=== PATIENT | male | born 1945 | race Caucasian/White ===

== ENCOUNTER → 2016-09-06 | Outpatient (CLI) | payer MEDICARE ==
[~2016-09-06] MED LIST: BUDE10.2 IH; CHOL100013 PO; LEVO25TA4 PO; TRIA1CAP3 PO
--- NOTE | 2016-09-06 16:06 | RAD ---
Indication follow-up pulmonary nodule. Noncontrast imaging through the chest was performed and is compared to an exam 05/20/2016. The imaging of the chest, particularly just above the neftaly and caudally is significantly limited by patient respiratory motion. Imaging through the upper abdomen demonstrates a probable parapelvic cyst associated with the left kidney. A right renal cyst is noted, similar. A definite acute or significant finding in the upper abdomen is not seen. Significant hilar or mediastinal adenopathy is not seen. There is some coronary artery calcification. A definite new parenchymal mass is not seen. Irregular pleural-based parenchymal opacity in the left upper lobe is seen and appears unchanged. A definite new finding or acute finding in the chest is not seen but again the study is compromised by patient respiratory motion. Occasional calcified granulomas are noted. IMPRESSION: Limited study secondary to patient respiratory motion. No definite acute finding seen. Irregular parenchymal opacity in the left upper lobe appears stable. Continued surveillance imaging advised. PQRS Compliance Statement: One or more of the following individualized dose reduction techniques were utilized for this examination: 1. Automated exposure control 2. Adjustment of the mA and/or kV according to patient size 3. Use of iterative reconstruction technique
== END | disposition home or self-care (01) ==
LOC: CT 15:05
PROVIDERS: ATTEND Internal Medicine
DX: R91.1 Solitary pulmonary nodule (principal)
CPT/HCPCS: 71250

== ENCOUNTER → 2017-02-07 | Outpatient (CLI) | payer BC, MEDICARE ==
--- NOTE | 2017-02-07 15:52 | RAD ---
CT of the chest without contrast, 02/07/2017: History: Follow-up pulmonary nodule Noncontrast scans were obtained with multiplanar reconstructions produced. Comparison is made to a study from 09/06/2016. There are a few scattered linear opacities in both lungs compatible with scars. A calcified granuloma is present in the left upper lobe. There is an elongated pleural-parenchymal opacity in the posterolateral aspect of the left upper lobe as best seen on images 74 through 78 of series #3. It have shown no definite change since 05/20/2016 and 09/06/2016. No new pulmonary nodularity or significant infiltrate is seen. There is no evidence of pleural fluid. There is moderate calcific plaquing of the thoracic aorta without evidence of aneurysm. Several coronary artery calcifications are noted. The heart is not enlarged. No mediastinal adenopathy is evident. Moderate multilevel hypertrophic degenerative change is present in the thoracic spine. IMPRESSION: 1. Scattered bilateral parenchymal scars. 2. Unchanged small elongated pleural-parenchymal opacity in the lateral aspect of the left upper lobe which is also probably a scar. Further CT surveillance may be prudent to exclude a slowly growing neoplasm. 3. Mild coronary artery calcifications. 4. No new abnormality is detected. PQRS Compliance Statement: One or more of the following individualized dose reduction techniques were utilized for this examination: 1. Automated exposure control 2. Adjustment of the mA and/or kV according to patient size 3. Use of iterative reconstruction technique
== END | disposition home or self-care (01) ==
LOC: CT 15:27
PROVIDERS: ATTEND Internal Medicine
DX: J84.10 Pulmonary fibrosis, unspecified (principal); R91.1 Solitary pulmonary nodule; I25.10 Atherosclerotic heart disease of native coronary artery without angina pectoris; J98.4 Other disorders of lung; M47.894 Other spondylosis, thoracic region; I70.0 Atherosclerosis of aorta
CPT/HCPCS: 71250

== ENCOUNTER 2017-04-17 15:00 | Emergency (ER) | payer BC ==
[~2017-04-17] VITALS: Ht 188 cm; Wt 113.4 kg
[2017-04-17 15:28] LABS: BASO # 0.1 x10^3/uL (0.0-0.2); BASO % 1 % (0-3); EOS % 2 % (0-3); HEMATOCRIT 39.3 % (39.0-53.0); HEMOGLOBIN 13.6 g/dL (13.0-17.5); LYMPH # 1.3 x10^3/uL (1.0-4.8); LYMPH % 16 % (24-48); MEAN CORPUSCULAR HEMOGLOBIN 32 pg (25-35); MEAN CORPUSCULAR HGB CONC 35 g/dL (31-37); MEAN CORPUSCULAR VOLUME 93 fL (79-100); MONO % 8 % (0-9); NEUT % 74 % (31-73); PLATELET COUNT 242 x10^3/uL (140-400); RED BLOOD COUNT 4.24 x10^6/uL (4.30-5.70); RED CELL DISTRIBUTION WIDTH 13.6 % (11.5-14.5); WHITE BLOOD COUNT 8.2 x10^3/uL (4.0-11.0)
--- NOTE | 2017-04-17 15:30 | PHYS DOC ---
Past Medical History Past Medical History: CHF, High Cholesterol, Hypertension, Hypothyroid Past Surgical History: Other Additional Past Surgical Histo: LAMECTOMY, PYLODAL CYST, BILATERAL ARM SX Alcohol Use: Occasionally Drug Use: None Adult General Chief Complaint Chief Complaint: LOWER EXT PAIN [facility] HPI Patient is a 71 year old male presents with complaints of left lower extremity pain and swelling. At baseline, the patient has bilateral lower extremity swelling but he thinks the swelling and the discomfort is worse today. Patient denies any trauma. Patient is noncompliant with medication regimen including diuretics and antihypertensives. Patient denies any fevers chills cough chest pain back pain neck pain abdominal pain. However the patient is experiencing some shortness of breath. Review of Systems Review of Systems Constitutional: Denies fever or chills [] Eyes: Denies change in visual acuity, redness, or eye pain [] HENT: Denies nasal congestion or sore throat [] Respiratory: Denies cough. Yes to mild shortness of breath Cardiovascular: No additional information not addressed in HPI. Yes to bilateral lower extremity swelling GI: Denies abdominal pain, nausea, vomiting, . Musculoskeletal: Denies back pain or joint pain. Yesterday left lower extremity pain Integument: Denies rash or skin lesions [] Neurologic: Denies headache, focal weakness or sensory changes [] Current Medications Current Medications Current Medications Medications (Trade) Dose Ordered Sig/Kendra Start Time Stop Time Status Last Admin Dose Admin Labetalol HCl (Normodyne) 10 mg 1X ONCE 04/17/17 16:00 04/17/17 16:01 DC 04/17/17 15:58 10 MG Allergies Allergies Allergies Coded Allergies Type Severity Reaction Last Updated Verified No Known Drug Allergies 05/20/16 No Physical Exam Physical Exam Constitutional: Well developed, well nourished, no acute distress, non-toxic appearance. [] HENT: Normocephalic, atraumatic. No JVD Eyes: EOMI, conjunctiva normal, no discharge. [] Neck: Normal range of motion, no tenderness, supple, no JVD Cardiovascular:Heart rate regular rhythm, no murmur, normal perfusion Lungs & Thorax: Bilateral breath sounds clear to auscultation, no tachypnea Abdomen: Bowel sounds normal, soft, no tenderness, no masses, no pulsatile masses. [] Skin: Warm, dry, no erythema, no rash. [] Back: No tenderness, normal range of motion Extremities:no cyanosis, no clubbing, ROM intact. Bilateral lower extremity edema with left more than right, pitting edema 2+. No signs of arterial insufficiency Neurologic: Alert and oriented X 3, normal motor function, no focal deficits noted. [] Psychologic: Affect normal, judgement normal, mood normal. [] Current Patient Data Vital Signs Vital Signs Date Time Temp Pulse Resp B/P (MAP) Pulse Ox O2 Delivery O2 Flow Rate FiO2 04/17/17 17:55 69 18 142/71 (94) 97 Room Air Lab Values Laboratory Tests Test 04/17/17 15:15 White Blood Count 8.2 x10^3/uL (4.0-11.0) Red Blood Count 4.24 x10^6/uL (4.30-5.70) L Hemoglobin 13.6 g/dL (13.0-17.5) Hematocrit 39.3 % (39.0-53.0) Mean Corpuscular Volume 93 fL (79-100) Mean Corpuscular Hemoglobin 32 pg (25-35) Mean Corpuscular Hemoglobin Concent 35 g/dL (31-37) Red Cell Distribution Width 13.6 % (11.5-14.5) Platelet Count 242 x10^3/uL (140-400) Neutrophils (%) (Auto) 74 % (31-73) H Lymphocytes (%) (Auto) 16 % (24-48) L Monocytes (%) (Auto) 8 % (0-9) Eosinophils (%) (Auto) 2 % (0-3) Basophils (%) (Auto) 1 % (0-3) Neutrophils # (Auto) 6.0 x10^3uL (1.8-7.7) Lymphocytes # (Auto) 1.3 x10^3/uL (1.0-4.8) Monocytes # (Auto) 0.6 x10^3/uL (0.0-1.1) Eosinophils # (Auto) 0.2 x10^3/uL (0.0-0.7) Basophils # (Auto) 0.1 x10^3/uL (0.0-0.2) Sodium Level 139 mmol/L (136-145) Potassium Level 3.9 mmol/L (3.5-5.1) Chloride Level 101 mmol/L (98-107) Carbon Dioxide Level 27 mmol/L (21-32) Anion Gap 11 (6-14) Blood Urea Nitrogen 20 mg/dL (8-26) Creatinine 1.3 mg/dL (0.7-1.3) Estimated GFR (Cockcroft-Gault) 54.4 Glucose Level 142 mg/dL (70-99) H Calcium Level 9.0 mg/dL (8.5-10.1) Total Bilirubin 0.4 mg/dL (0.2-1.0) Direct Bilirubin 0.1 mg/dL (0.0-0.2) Aspartate Amino Transferase (AST) 16 U/L (15-37) Alanine Aminotransferase (ALT) 17 U/L (16-63) Alkaline Phosphatase 68 U/L (46-116) Troponin I Quantitative < 0.017 ng/mL (0.000-0.055) XR-Ilk-I-Type Natriuretic Peptide 117 pg/mL (0-124) Total Protein 7.3 g/dL (6.4-8.2) Albumin 3.6 g/dL (3.4-5.0) Laboratory Tests 04/17/17 15:15 Laboratory Tests 04/17/17 15:15 EKG EKG 1515 96, sinus rhythm, no STEMI [] Radiology/Procedures Radiology/Procedures preliminary read: copd pattern, nothing acute[] Course & Med Decision Making Course & Med Decision Making Pertinent Labs and Imaging studies reviewed. (See chart for details) results discussed with patient. 1841 pt in nad. HR 70, 97% RA, no tachypnea, 144/73. Pt agrees to follow up with pcp for recheck and discussion regarding compliance with BP meds as well as further evaluation for peripheral edema. The chronicity of the edema is a problem that, at the time of of the ED evaluation, does not require inpatient evaluation and is amenable to outpatient work up and continued treatment. Importance of compliance with medication regimen and diet have been emphasized to pt and family. pt agrees with plan, no reservations at being discharged home. [] Dragon Disclaimer Dragon Disclaimer This electronic medical record was generated, in whole or in part, using a voice recognition dictation system. Departure Departure Impression: Primary Impression: Hypertension affecting Additional Impressions: Non compliance w medication regimen Peripheral edema Condition: IMPROVED Referrals: NATALIA OZUNA MD (PCP) follow up with your pcp in 2-4 days, please be compliant with your medications and diet. If your symptoms worsen or other concerning symptoms develop please return to the ED immediately Patient Instructions: Hypertension, Peripheral Edema Problem Qualifiers Robert NETTLES MD Apr 17, 2017 15:30
[2017-04-17 15:46] LABS: CREATININE 1.3 mg/dL (0.7-1.3); GFR 54.4; POTASSIUM 3.9 mmol/L (3.5-5.1)
[2017-04-17 15:51] LABS: ALBUMIN 3.6 g/dL (3.4-5.0); DIRECT BILIRUBIN 0.1 mg/dL (0.0-0.2); TOTAL BILIRUBIN 0.4 mg/dL (0.2-1.0); TOTAL PROTEIN 7.3 g/dL (6.4-8.2)
[2017-04-17] MEDS ORDERED: LABETALOL 20 MG/4 ML DISP.SYRIN. IVP ONE (16:00)
--- NOTE | 2017-04-17 16:08 | EKG ---
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
--- NOTE | 2017-04-17 16:37 | RAD ---
Bilateral lower extremity venous duplex study 04/17/2017 Clinical history: Bilateral leg swelling. Technique: Using a combination of real time ultrasound imaging and color-flow and pulse Doppler imaging techniques along with graded compression and augmentation, duplex evaluation of the deep venous system of the both lower extremities was performed. Multiple images were obtained. Findings: There is no sonographic evidence of deep venous thrombosis involving the visualized deep venous structures of either lower extremity. A 2.3 cm popliteal cyst is seen posterior to the left knee. Impression: There is no sonographic evidence of deep venous thrombosis involving the visualized deep venous structures of either lower extremity.
[2017-04-17 17:55] VITALS: BP 142/71
--- NOTE | 2017-04-18 10:29 | RAD ---
Exam performed: 2 views of the chest. Indication: chf, bilateral lower extremity swelling, shortness of breath for 3 months Date of Service:04/17/2017 5:15 PM . Comparison : Two-view chest from 05/02/16. Findings: PA and lateral radiographs of the chest reveal a normal cardiomediastinal contour. Pulmonary vascularity is unremarkable. The lungs are clear. No pleural fluid is seen. The visualized osseous structures are unremarkable. Impression: Radiographically normal chest.
== END 2017-04-17 18:56 | disposition home or self-care (01) ==
LOC: ER 15:00
DX: I11.0 Hypertensive heart disease with heart failure (principal); I50.9 Heart failure, unspecified; R60.9 Edema, unspecified; Z91.14 Patient's other noncompliance with medication regimen; E03.9 Hypothyroidism, unspecified
CPT/HCPCS: 36415; 71020; 80048; 80076; 83880; 84484; 85025; 93005; 93970; 96374; 99285; J3490

== ENCOUNTER 2017-05-16 11:13 | Inpatient (IN) | payer BC ==
[~2017-05-16] VITALS: Ht 188 cm; Wt 114.5 kg
[2017-05-16 12:08] LABS: BASO % 1 % (0-3); EOS % 3 % (0-3); HEMATOCRIT 39.1 % (39.0-53.0); HEMOGLOBIN 13.1 g/dL (13.0-17.5); LYMPH # 1.6 x10^3/uL (1.0-4.8); LYMPH % 23 % (24-48); MEAN CORPUSCULAR HEMOGLOBIN 31 pg (25-35); MEAN CORPUSCULAR HGB CONC 34 g/dL (31-37); MEAN CORPUSCULAR VOLUME 93 fL (79-100); MONO % 5 % (0-9); NEUT % 68 % (31-73); PLATELET COUNT 172 x10^3/uL (140-400); RED BLOOD COUNT 4.21 x10^6/uL (4.30-5.70); RED CELL DISTRIBUTION WIDTH 14.1 % (11.5-14.5); WHITE BLOOD COUNT 7.1 x10^3/uL (4.0-11.0)
--- NOTE | 2017-05-16 12:12 | RAD ---
EXAM: Chest one view. HISTORY: Chest pain, dizziness, shortness of breath. COMPARISON: 04/17/2017. FINDINGS: A frontal view of the chest is obtained. There are no confluent infiltrates. Hyperinflation is consistent with chronic obstructive pulmonary disease. There is no pneumothorax or pleural effusion. The heart is not enlarged. There are atherosclerotic calcifications of the aorta. IMPRESSION: 1. Hyperinflation suggests chronic obstructive pulmonary disease. No confluent infiltrates.
[2017-05-16 12:21] LABS: CREATININE 3.4 mg/dL (0.7-1.3); GFR 17.9; POTASSIUM 5.3 mmol/L (3.5-5.1)
--- NOTE | 2017-05-16 12:40 | PHYS DOC ---
Past Medical History Past Medical History: CHF, High Cholesterol, Hypertension, Hypothyroid Past Surgical History: Other Additional Past Surgical Histo: LAMINECTOMY, PILONIDAL CYST, BILATERAL ARM SX, BILATERAL WRIST SX Alcohol Use: Occasionally Drug Use: None Adult General Chief Complaint Chief Complaint: CHEST PAIN HPI HPI Patient is a 71 year old male who was being having shortness of air dizziness chest tightness that is been going on for a month and has progressively getting worse. Patient has no contact to his PCP regarding his symptoms. Patient does not describe any new pain or swelling in his lower extremities. Patient denies any sick contacts, fevers, chills, rashes. Patient states he is compliant with his diabetic medications. Patient denies any neck extremity abdominal pain Review of Systems Review of Systems Constitutional: Denies fever or chills [] Eyes: Denies change in visual acuity, redness, or eye pain [] HENT: Denies nasal congestion or sore throat [] Respiratory: Denies cough or shortness of breath [] Cardiovascular: No additional information not addressed in HPI [] GI: Denies abdominal pain, nausea, vomiting, bloody stools or diarrhea [] : Denies dysuria or hematuria [] Musculoskeletal: Denies back pain or joint pain [] Integument: Denies rash or skin lesions [] Neurologic: Denies headache, focal weakness or sensory changes [] Endocrine: Denies polyuria or polydipsia [] Current Medications Current Medications Current Medications Medications (Trade) Dose Ordered Sig/Kendra Start Time Stop Time Status Last Admin Dose Admin Sodium Chloride 250 ml @ 500 mls/hr 1X ONCE 05/16/17 12:45 05/16/17 13:14 Allergies Allergies Allergies Coded Allergies Type Severity Reaction Last Updated Verified No Known Drug Allergies 05/20/16 No Physical Exam Physical Exam Constitutional: Well developed, well nourished, mild distress, non-toxic appearance. [] HENT: Normocephalic, atraumatic, , oropharynx dry, no oral exudates, nose normal. [] Eyes: EOMI, conjunctiva normal, no discharge. [] Neck: Normal range of motion, no tenderness, supple, no stridor. JVD Cardiovascular bradycardia, equal pulses, normal perfusion Lungs & Thorax: Decreased breathe sounds in the bases, no rales, no rhonchi, no wheezing Abdomen: Bowel sounds normal, soft, no tenderness, no masses, no pulsatile masses. [] Skin: Warm, dry, no erythema, no rash. [] Back: No tenderness, normal range of motion Extremities: No tenderness, no cyanosis, no DVT, ROM intact, no edema. [] Neurologic: Alert and oriented X 3, normal motor function, no focal deficits noted. [] Psychologic: Affect normal, judgement normal, mood normal. [] Current Patient Data Vital Signs Vital Signs Date Time Temp Pulse Resp B/P (MAP) Pulse Ox O2 Delivery O2 Flow Rate FiO2 05/16/17 11:22 97.4 58 18 109/55 (73) 100 Room Air 97.4 Lab Values Laboratory Tests Test 05/16/17 11:50 White Blood Count 7.1 x10^3/uL (4.0-11.0) Red Blood Count 4.21 x10^6/uL (4.30-5.70) L Hemoglobin 13.1 g/dL (13.0-17.5) Hematocrit 39.1 % (39.0-53.0) Mean Corpuscular Volume 93 fL (79-100) Mean Corpuscular Hemoglobin 31 pg (25-35) Mean Corpuscular Hemoglobin Concent 34 g/dL (31-37) Red Cell Distribution Width 14.1 % (11.5-14.5) Platelet Count 172 x10^3/uL (140-400) Neutrophils (%) (Auto) 68 % (31-73) Lymphocytes (%) (Auto) 23 % (24-48) L Monocytes (%) (Auto) 5 % (0-9) Eosinophils (%) (Auto) 3 % (0-3) Basophils (%) (Auto) 1 % (0-3) Neutrophils # (Auto) 4.8 x10^3uL (1.8-7.7) Lymphocytes # (Auto) 1.6 x10^3/uL (1.0-4.8) Monocytes # (Auto) 0.4 x10^3/uL (0.0-1.1) Eosinophils # (Auto) 0.2 x10^3/uL (0.0-0.7) Basophils # (Auto) 0.0 x10^3/uL (0.0-0.2) Sodium Level 138 mmol/L (136-145) Potassium Level 5.3 mmol/L (3.5-5.1) H Chloride Level 106 mmol/L (98-107) Carbon Dioxide Level 23 mmol/L (21-32) Anion Gap 9 (6-14) Blood Urea Nitrogen 70 mg/dL (8-26) H Creatinine 3.4 mg/dL (0.7-1.3) H Estimated GFR (Cockcroft-Gault) 17.9 Glucose Level 122 mg/dL (70-99) H Calcium Level 9.0 mg/dL (8.5-10.1) Troponin I Quantitative < 0.017 ng/mL (0.000-0.055) NR-Upu-B-Type Natriuretic Peptide 69 pg/mL (0-124) Laboratory Tests 05/16/17 11:50 Laboratory Tests 05/16/17 11:50 EKG EKG 1130 51, no STEMI, bradycardia[] Radiology/Procedures Radiology/Procedures EXAM: Chest one view. HISTORY: Chest pain, dizziness, shortness of breath. COMPARISON: 04/17/2017. FINDINGS: A frontal view of the chest is obtained. There are no confluent infiltrates. Hyperinflation is consistent with chronic obstructive pulmonary disease. There is no pneumothorax or pleural effusion. The heart is not enlarged. There are atherosclerotic calcifications of the aorta. IMPRESSION: 1. Hyperinflation suggests chronic obstructive pulmonary disease. No confluent infiltrates.[] Course & Med Decision Making Course & Med Decision Making Pertinent Labs and Imaging studies reviewed. (See chart for details) [] Dragon Disclaimer Dragon Disclaimer This electronic medical record was generated, in whole or in part, using a voice recognition dictation system. Departure Departure Impression: Primary Impression: Chest pain Additional Impressions: Dyspnea Acute renal failure Hyperkalemia Dehydration Disposition: ADMITTED INPATIENT Admitting Physician: Natalia Ozuna Condition: STABLE Referrals: NATALIA OZUNA MD (PCP) Problem Qualifiers Robert NETTLES MD May 16, 2017 12:40
[2017-05-16] MEDS ORDERED: IV NORMAL SALINE 250ML 250 ML IV ONE (12:45)
--- NOTE | 2017-05-16 12:53 | EKG ---
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
[2017-05-16] MEDS ORDERED: ONDANSETRON PF 4 MG/2 ML VIAL. IV PRN (13:00)
[2017-05-16 15:00] VITALS: BP 115/67
[2017-05-16] MEDS ORDERED: LISI40TA PO (15:12)
[2017-05-16] MEDS ORDERED: TRIA1TAB3 PO (15:45)
[2017-05-16] MEDS ORDERED: PNEUMOC CONJ VACC 23-VALENT 0.5 ML VIAL. VAX IM ONE (17:00)
[2017-05-16] MEDS ORDERED: FLU VACC QS2017-18 (36MOS+)/PF 0.5 ML SYRINGE. VAX IM ONE (17:00)
--- NOTE | 2017-05-16 17:29 | PDOC1 ---
History and Physical Date of Admission Date of Admission 05/16/17 Identification/Chief Complaint Chief Complaint chest pain, swelling LE Problems: Source Source: Chart review, Patient History of Present Illness History of Present Illness Patient is a 71 year old male who was being having shortness of air dizziness chest tightness that is been going on for a month and has progressively getting worse.last seen PCP was 11/01 . Patient does not describe any new pain in the calf of lower extremities. Patient denies any sick contacts, fevers, chills, rashes. Patient states he is compliant with his medications. Patient denies any neck or abdominal pain Past Medical History Cardiovascular: CHF, HTN, Hyperlipidemia Pulmonary: COPD, Other (lung nodule left has been stable) CENTRAL NERVOUS SYSTEM: Other (headache) Heme/Onc: No pertinent hx Hepatobiliary: No pertinent hx Psych: No pertinent hx Rheumatologic: Other (osteo arthritis) Renal/: No pertinent hx Endocrine: Hypothyroidism Dermatology: No pertinent hx Family History Family History: Hypertension Social History Smoke: 1 pack per day ALCOHOL: rare Drugs: None Current Problem List Problem List Problems Medical Problems: (1) Acute renal failure Status: Acute (2) Chest pain Status: Acute (3) Dehydration Status: Acute (4) Dyspnea Status: Acute (5) Hyperkalemia Status: Acute Current Medications Current Medications Current Medications Medications (Trade) Dose Ordered Sig/Kendra Start Time Stop Time Status Last Admin Dose Admin Influenza Virus Vaccine Quadrival (Fluarix Quad 0620-8090 Syringe) 0.5 ml ONCE ONCE 05/16/17 17:00 05/16/17 17:01 DC 05/16/17 16:11 0.5 ML Levothyroxine Sodium (Synthroid) 25 mcg DAILYAC 05/17/17 07:30 Ondansetron HCl (Zofran) 4 mg PRN Q8HRS PRN 05/16/17 13:00 05/17/17 12:59 05/16/17 13:13 4 MG Pneumococcal Polyvalent Vaccine (Pneumovax 23) 0.5 ml ONCE ONCE 05/16/17 17:00 05/16/17 17:01 DC 05/16/17 16:13 0.5 ML Sodium Chloride 250 ml @ 500 mls/hr 1X ONCE 05/16/17 12:45 05/16/17 13:14 DC 05/16/17 12:45 500 MLS/HR Allergies Allergies Allergies Coded Allergies Type Severity Reaction Last Updated Verified No Known Drug Allergies 05/20/16 No ROS Review of System CONSTITUTIONAL: No fever or chills EYES: No recent changes SKIN: No rash or itching CARDIOVASCULAR: mild chest pain tightness, no syncope but dizziness,no palpitations, + edema RESPIRATORY: No SOB or cough GASTROINTESTINAL: No nausea, vomiting or abdominal pain NEUROLOGICAL: + headaches and general weakness ENDOCRINE: No cold or heat intolerance GENITOURINARY: No urgency or frequency of urination MUSCULOSKELETAL: No back pain + joint pain LYMPHATICS: No enlarged lymph nodes PSYCHIATRIC: No anxiety or depression Physical Exam Physical Exam GEN.: No apparent distress. Alert and oriented. HEENT: Head is normocephalic, atraumatic NECK: Supple. LUNGS: Clear to auscultation. HEART: RRR, S1, S2 present. Peripheral pulses intact ABDOMEN: Soft, nontender. Positive bowel sounds. EXTREMITIES: Without any cyanosis. NEUROLOGIC: Normal speech, normal tone PSYCHIATRIC: Normal affect, normal mood. SKIN: No ulcerations Vitals Vitals Vital Signs Date Time Temp Pulse Resp B/P (MAP) Pulse Ox O2 Delivery O2 Flow Rate FiO2 05/16/17 14:46 Room Air 05/16/17 12:53 60 111/59 (76) 99 05/16/17 11:22 97.4 18 97.4 Labs Labs Laboratory Tests Test 05/16/17 11:50 White Blood Count 7.1 x10^3/uL (4.0-11.0) Red Blood Count 4.21 x10^6/uL (4.30-5.70) Hemoglobin 13.1 g/dL (13.0-17.5) Hematocrit 39.1 % (39.0-53.0) Mean Corpuscular Volume 93 fL (79-100) Mean Corpuscular Hemoglobin 31 pg (25-35) Mean Corpuscular Hemoglobin Concent 34 g/dL (31-37) Red Cell Distribution Width 14.1 % (11.5-14.5) Platelet Count 172 x10^3/uL (140-400) Neutrophils (%) (Auto) 68 % (31-73) Lymphocytes (%) (Auto) 23 % (24-48) Monocytes (%) (Auto) 5 % (0-9) Eosinophils (%) (Auto) 3 % (0-3) Basophils (%) (Auto) 1 % (0-3) Neutrophils # (Auto) 4.8 x10^3uL (1.8-7.7) Lymphocytes # (Auto) 1.6 x10^3/uL (1.0-4.8) Monocytes # (Auto) 0.4 x10^3/uL (0.0-1.1) Eosinophils # (Auto) 0.2 x10^3/uL (0.0-0.7) Basophils # (Auto) 0.0 x10^3/uL (0.0-0.2) Sodium Level 138 mmol/L (136-145) Potassium Level 5.3 mmol/L (3.5-5.1) Chloride Level 106 mmol/L (98-107) Carbon Dioxide Level 23 mmol/L (21-32) Anion Gap 9 (6-14) Blood Urea Nitrogen 70 mg/dL (8-26) Creatinine 3.4 mg/dL (0.7-1.3) Estimated GFR (Cockcroft-Gault) 17.9 Glucose Level 122 mg/dL (70-99) Calcium Level 9.0 mg/dL (8.5-10.1) Troponin I Quantitative < 0.017 ng/mL (0.000-0.055) AZ-Dim-M-Type Natriuretic Peptide 71 pg/mL (0-124) Laboratory Tests Test 05/16/17 11:50 White Blood Count 7.1 x10^3/uL (4.0-11.0) Red Blood Count 4.21 x10^6/uL (4.30-5.70) Hemoglobin 13.1 g/dL (13.0-17.5) Hematocrit 39.1 % (39.0-53.0) Mean Corpuscular Volume 93 fL (79-100) Mean Corpuscular Hemoglobin 31 pg (25-35) Mean Corpuscular Hemoglobin Concent 34 g/dL (31-37) Red Cell Distribution Width 14.1 % (11.5-14.5) Platelet Count 172 x10^3/uL (140-400) Neutrophils (%) (Auto) 68 % (31-73) Lymphocytes (%) (Auto) 23 % (24-48) Monocytes (%) (Auto) 5 % (0-9) Eosinophils (%) (Auto) 3 % (0-3) Basophils (%) (Auto) 1 % (0-3) Neutrophils # (Auto) 4.8 x10^3uL (1.8-7.7) Lymphocytes # (Auto) 1.6 x10^3/uL (1.0-4.8) Monocytes # (Auto) 0.4 x10^3/uL (0.0-1.1) Eosinophils # (Auto) 0.2 x10^3/uL (0.0-0.7) Basophils # (Auto) 0.0 x10^3/uL (0.0-0.2) Sodium Level 138 mmol/L (136-145) Potassium Level 5.3 mmol/L (3.5-5.1) Chloride Level 106 mmol/L (98-107) Carbon Dioxide Level 23 mmol/L (21-32) Anion Gap 9 (6-14) Blood Urea Nitrogen 70 mg/dL (8-26) Creatinine 3.4 mg/dL (0.7-1.3) Estimated GFR (Cockcroft-Gault) 17.9 Glucose Level 122 mg/dL (70-99) Calcium Level 9.0 mg/dL (8.5-10.1) Troponin I Quantitative < 0.017 ng/mL (0.000-0.055) IU-Gvb-R-Type Natriuretic Peptide 71 pg/mL (0-124) VTE Prophylaxis Ordered VTE Prophylaxis Devices: Yes VTE Pharmacological Prophylaxi: Yes Assessment/Plan Assessment/Plan 1- acute renal failure will hold MCKINLEY and diuretic and hydrate 2-dizziness likely due to dhydration 3-chest discomfort atypical serial enzyme 4-swelling LE 5-hx left lung nodule has barbara stable over [address] in 08/03 6-hypothyroid check lipid NATALIA OZUNA MD May 16, 2017 17:29
[2017-05-16] MEDS ORDERED: ENOXAPARIN 30 MG/0.3 ML SYRINGE. SQ SCH (17:30)
[2017-05-16 18:27] VITALS: BP 112/53
[2017-05-16 19:00] VITALS: BP 83/47
[2017-05-16] MEDS ORDERED: IV NORMAL SALINE 500ML BAG 500 ML IV ONE (20:00)
[2017-05-16] MEDS: IV 1/2 NORMAL SALINE 1,000 ML IV SCH (20:24)
[2017-05-16 20:25] VITALS: BP 99/51
[2017-05-16] MEDS: IPRATRPIUM/ALBUTEROL 0.5/2.5MG 3 ML NEBU. NEB SCH (20:31)
[2017-05-16 20:44] VITALS: BP 96/58
[2017-05-16 23:00] VITALS: BP 99/58
[2017-05-17 03:00] VITALS: BP 113/59
[2017-05-17 03:37] LABS: BASO # 0.1 x10^3/uL (0.0-0.2); BASO % 1 % (0-3); EOS % 5 % (0-3); HEMATOCRIT 39.5 % (39.0-53.0); HEMOGLOBIN 12.8 g/dL (13.0-17.5); LYMPH # 1.8 x10^3/uL (1.0-4.8); LYMPH % 31 % (24-48); MEAN CORPUSCULAR HEMOGLOBIN 31 pg (25-35); MEAN CORPUSCULAR HGB CONC 32 g/dL (31-37); MEAN CORPUSCULAR VOLUME 95 fL (79-100); MONO % 9 % (0-9); NEUT % 54 % (31-73); PLATELET COUNT 156 x10^3/uL (140-400); RED BLOOD COUNT 4.13 x10^6/uL (4.30-5.70); RED CELL DISTRIBUTION WIDTH 14.7 % (11.5-14.5); WHITE BLOOD COUNT 5.9 x10^3/uL (4.0-11.0)
[2017-05-17 05:27] LABS: CALCIUM 8.8 mg/dL (8.5-10.1); CREATININE 2.5 mg/dL (0.7-1.3); GFR 25.6; POTASSIUM 4.7 mmol/L (3.5-5.1)
[2017-05-17] MEDS: IV 1/2 NORMAL SALINE 1,000 ML IV SCH ×2 (05:53→16:17)
[2017-05-17 07:00] VITALS: BP 89/57
[2017-05-17] MEDS: IPRATRPIUM/ALBUTEROL 0.5/2.5MG 3 ML NEBU. NEB SCH ×4 (07:12→20:02)
[2017-05-17] MEDS ORDERED: LEVOTHYROXINE 25 MCG TABLET. PO SCH (07:30)
[2017-05-17 07:58] LABS: CHOLESTEROL/HDL RATIO 5.7
--- NOTE | 2017-05-17 10:05 | PDOC2 ---
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 He reports midsternal chest pressure that occasionally radiates to the left axillary region and across the back of his neck and shoulders. He reports onset of pain with walking about 100 feet and resolution after a few minutes of rest. Episodes of pain started intermittently about 2 months ago and have been occurring more and more frequently. He reports associated dyspnea, lightheadedness and nausea. He also reports epigastric pain and chronic diarrhea (7 stools per day) for quite some time. He reports lightheadedness on standing that improves with sitting down. He reports feeling his heart pounding when at rest but denies skipping or racing episodes. He denies congestive symptoms and sleeps with 1-2 pillows for comfort. PAST MEDICAL HISTORY Past Medical History Cardiovascular: CHF, HTN, Hyperlipidemia Pulmonary: COPD, Other (lung nodule left has been stable) CENTRAL NERVOUS SYSTEM: Other (headache) Heme/Onc: No pertinent hx Hepatobiliary/GI: chronic diarrhea Psych: No pertinent hx Rheumatologic: Other (osteo arthritis) Renal/: No pertinent hx Endocrine: Hypothyroidism Dermatology: No pertinent hx PAST SURGICAL HISTORY Past Surgical History abdominal surgery as a child, back surgery, pilonidal cyst FAMILY HISTORY Family History premature coronary disease in father SOCIAL HISTORY Social History prior smoker, quit 20 years ago, 2 beers occasionally, no illicit drugs CURRENT MEDICATIONS CURRENT MEDICATIONS Current Medications Medications (Trade) Dose Ordered Sig/Kendra Route PRN Reason Start Time Stop Time Status Last Admin Dose Admin Sodium Chloride 250 ml @ 500 mls/hr 1X ONCE IV 05/16/17 12:45 05/16/17 13:14 DC 05/16/17 12:45 Ondansetron HCl (Zofran) 4 mg PRN Q8HRS PRN IV NAUSEA/VOMITING 05/16/17 13:00 05/17/17 12:59 05/16/17 13:13 Influenza Virus Vaccine Quadrival (Fluarix Quad [id number] Syringe) 0.5 ml ONCE ONCE VAX IM 05/16/17 17:00 05/16/17 17:01 DC 05/16/17 16:11 Pneumococcal Polyvalent Vaccine (Pneumovax 23) 0.5 ml ONCE ONCE VAX IM 05/16/17 17:00 05/16/17 17:01 DC 05/16/17 16:13 Albuterol/ Ipratropium (Duoneb) 3 ml RTQID NEB 05/16/17 20:00 05/17/17 07:12 Enoxaparin Sodium (Lovenox 30mg Syringe) 30 mg Q24H SQ 05/16/17 17:30 05/16/17 17:41 Sodium Chloride 500 ml @ 500 mls/hr 1X ONCE IV 05/16/17 20:00 05/16/17 20:59 DC 05/16/17 20:19 Sodium Chloride 1,000 ml @ 100 mls/hr Q10H IV 05/16/17 20:00 05/17/17 05:53 ALLERGIES ALLERGIES: Coded Allergies: No Known Drug Allergies (Unverified , 05/20/16) ROS Review of System as per HPI PHYSICAL EXAM General: Alert, Oriented X3, Cooperative, No acute distress HEENT: Atraumatic, EOMI Lungs: Clear to auscultation Heart: Regular rate, Normal S1, Normal S2 Abdomen: Normal bowel sounds, Soft, Other (+ epigastric tenderness) Extremities: No cyanosis, Normal pulses, Other (trace edema) Neuro: Normal speech, Strength at 5/5 X4 ext Psych/Mental Status: Mental status NL, Mood NL VITALS VITALS Vital Signs Date Time Temp Pulse Resp B/P (MAP) Pulse Ox O2 Delivery O2 Flow Rate FiO2 05/17/17 07:15 98 Room Air 05/17/17 07:00 97.0 67 20 89/57 (68) 97.0 LABS Lab: Laboratory Tests Test 05/16/17 11:50 05/16/17 19:30 05/17/17 02:00 White Blood Count 7.1 x10^3/uL (4.0-11.0) 5.9 x10^3/uL (4.0-11.0) Red Blood Count 4.21 x10^6/uL (4.30-5.70) 4.13 x10^6/uL (4.30-5.70) Hemoglobin 13.1 g/dL (13.0-17.5) 12.8 g/dL (13.0-17.5) Hematocrit 39.1 % (39.0-53.0) 39.5 % (39.0-53.0) Mean Corpuscular Volume 93 fL (79-100) 95 fL (79-100) Mean Corpuscular Hemoglobin 31 pg (25-35) 31 pg (25-35) Mean Corpuscular Hemoglobin Concent 34 g/dL (31-37) 32 g/dL (31-37) Red Cell Distribution Width 14.1 % (11.5-14.5) 14.7 % (11.5-14.5) Platelet Count 172 x10^3/uL (140-400) 156 x10^3/uL (140-400) Neutrophils (%) (Auto) 68 % (31-73) 54 % (31-73) Lymphocytes (%) (Auto) 23 % (24-48) 31 % (24-48) Monocytes (%) (Auto) 5 % (0-9) 9 % (0-9) Eosinophils (%) (Auto) 3 % (0-3) 5 % (0-3) Basophils (%) (Auto) 1 % (0-3) 1 % (0-3) Neutrophils # (Auto) 4.8 x10^3uL (1.8-7.7) 3.2 x10^3uL (1.8-7.7) Lymphocytes # (Auto) 1.6 x10^3/uL (1.0-4.8) 1.8 x10^3/uL (1.0-4.8) Monocytes # (Auto) 0.4 x10^3/uL (0.0-1.1) 0.5 x10^3/uL (0.0-1.1) Eosinophils # (Auto) 0.2 x10^3/uL (0.0-0.7) 0.3 x10^3/uL (0.0-0.7) Basophils # (Auto) 0.0 x10^3/uL (0.0-0.2) 0.1 x10^3/uL (0.0-0.2) Sodium Level 138 mmol/L (136-145) 140 mmol/L (136-145) Potassium Level 5.3 mmol/L (3.5-5.1) 4.7 mmol/L (3.5-5.1) Chloride Level 106 mmol/L (98-107) 108 mmol/L (98-107) Carbon Dioxide Level 23 mmol/L (21-32) 18 mmol/L (21-32) Anion Gap 9 (6-14) 14 (6-14) Blood Urea Nitrogen 70 mg/dL (8-26) 66 mg/dL (8-26) Creatinine 3.4 mg/dL (0.7-1.3) 2.5 mg/dL (0.7-1.3) Estimated GFR (Cockcroft-Gault) 17.9 25.6 Glucose Level 122 mg/dL (70-99) 84 mg/dL (70-99) Calcium Level 9.0 mg/dL (8.5-10.1) 8.8 mg/dL (8.5-10.1) Troponin I Quantitative < 0.017 ng/mL (0.000-0.055) < 0.017 ng/mL (0.000-0.055) < 0.017 ng/mL (0.000-0.055) VT-Fzo-R-Type Natriuretic Peptide 71 pg/mL (0-124) Thyroid Stimulating Hormone (TSH) 4.241 uIU/mL (0.358-3.74) Triglycerides Level 236 mg/dL (0-150) Cholesterol Level 172 mg/dL (0-200) LDL Cholesterol, Calculated 95 mg/dL (0-100) VLDL Cholesterol, Calculated 47 mg/dL (0-40) Non-HDL Cholesterol Calculated 142 mg/dL (0-129) HDL Cholesterol 30 mg/dL (40-60) Cholesterol/HDL Ratio 5.7 IMAGES IMAGES CXR - prob COPD, no acute abn EKG EKG sinus bradycardia, no acute abn ASSESSMENT/PLAN ASSESSMENT/PLAN 1. exertional chest pain - FL ruled out. MPI tomorrow. 2. recurrent presyncope - likely secondary to orthostasis and dehydration 3. bradycardia - mild. consider OP event monitoring. 4. ARF - likely secondary to dehydration 5. chronic diarrhea/epigastric pain - per PCP, consider GI eval 6. hypertension - currently mildly hypotensive 7. dyslipidemia. Problems: ADRIEL LOWERY MD 05/17/17 1350: CARDIAC CONSULT ALLERGIES ALLERGIES: Coded Allergies: No Known Drug Allergies (Unverified , 05/20/16) ASSESSMENT/PLAN ASSESSMENT/PLAN Pt. seen and examined. Agree with above ASSISTANT COOK note. Plan for MPI tomorrow. Thanks for consultation. Problems: KIMANI AQUINO APRN May 17, 2017 10:05 ADRIEL LOWERY MD May 17, 2017 13:50
[2017-05-17] MEDS: PANTOPRAZOLE 40 MG TABLET.DR. PO SCH (10:46)
[2017-05-17 11:00] VITALS: BP 103/56
--- NOTE | 2017-05-17 11:54 | PDOC2 ---
CONSULT Date of Consult Date of Consult DATE: 05/17/17 TIME: 11:49 Reason for Consult Reason for Consult: BOGDAN Referring Physician Referring Physician: SULMA Identification/Chief Complaint Chief Complaint CHEST PAIN AND SOB Problems: Source Source: Chart review, Patient History of Present Illness Reason for Visit: THIS IS A 71 YR OLD ADMITTED WITH CHEST PAIN AND SOB. CARDIOLOGY EVAL IS ONGOING AT THIS TIME. NO CKD NOTED. ADMIT CR IS 3.4 WITH A K OF 5.4. CR TODAY IS 2.5. STATES POOR INTAKE FOR A FEW DAYS. NO NSAID ABUSE NOTED. NO HX OF ANY KIDNEY OR BLADDER SURGERIES HEMATURIA DYSURIA OR FREQUENCY NOTED Past Medical History Cardiovascular: CHF, HTN, Hyperlipidemia Pulmonary: COPD, Other (lung nodule left has been stable) CENTRAL NERVOUS SYSTEM: Other (headache) Heme/Onc: No pertinent hx Hepatobiliary: No pertinent hx Psych: No pertinent hx Rheumatologic: Other (osteo arthritis) Renal/: No pertinent hx Endocrine: Hypothyroidism Dermatology: No pertinent hx Family History Family History: Hypertension Social History 1 pack per day ALCOHOL: rare Drugs: None Current Problem List Problem List Problems Medical Problems: (1) Acute renal failure Status: Acute (2) Chest pain Status: Acute (3) Dehydration Status: Acute (4) Dyspnea Status: Acute (5) Hyperkalemia Status: Acute Current Medications Current Medications Current Medications Sodium Chloride 250 ml @ 500 mls/hr 1X ONCE IV Last administered on 12:45; Start 05/16/17 at 12:45; Stop 05/16/17 at 13:14; Status DC Ondansetron HCl (Zofran) 4 mg PRN Q8HRS PRN IV NAUSEA/VOMITING Last administered on 05/16/17 13:13; Start 05/16/17 at 13:00; Stop 05/17/17 at 12:59 Influenza Virus Vaccine Quadrival (Fluarix Quad [id number] Syringe) 0.5 ml ONCE ONCE VAX IM Last administered on 05/16/17 16:11; Start 05/16/17 at 17:00; Stop 05/16/17 at 17:01; Status DC Pneumococcal Polyvalent Vaccine (Pneumovax 23) 0.5 ml ONCE ONCE VAX IM Last administered on 05/16/17 16:13; Start 05/16/17 at 17:00; Stop 05/16/17 at 17:01 ; Status DC Levothyroxine Sodium (Synthroid) 25 mcg DAILYAC PO Last administered on 10:46; Start 05/17/17 at 07:30 Albuterol/ Ipratropium (Duoneb) 3 ml RTQID NEB Last administered on 05/17/17 11:08; Start 05/16/17 at 20:00 Pantoprazole Sodium (Protonix) 40 mg DAILYAC PO Last administered on 05/17/17 10:46; Start 05/17/17 at 07:30 Enoxaparin Sodium (Lovenox 30mg Syringe) 30 mg Q24H SQ Last administered on 17:41; Start 05/16/17 at 17:30 Sodium Chloride 500 ml @ 500 mls/hr 1X ONCE IV Last administered on 20:19; Start 05/16/17 at 20:00; Stop 05/16/17 at 20:59; Status DC Sodium Chloride 1,000 ml @ 100 mls/hr Q10H IV Last administered on 05/17/17 05:53; Start 05/16/17 at 20:00 Active Scripts Active Reported Triamterene-Hctz 37.5-25 Mg Tb (Triamterene/Hydrochlorothiazid) 1 Each Tablet 1 Tab PO DAILY Lisinopril 40 Mg Tablet 1 Tab PO DAILY Levothyroxine Sodium 25 Mcg Tablet 25 Mcg PO DAILYAC Allergies Allergies: Coded Allergies: No Known Drug Allergies (Unverified , 05/20/16) ROS General: YES: Fatigue, Appetite PSYCHOLOGICAL ROS: YES: Anxiety Eyes: Yes Decreased vision HEENT: YES: Fidel ALLERGY AND IMMUNOLOGY: YES: Seasonal Allergies Respiratory: YES: Cough, Shortness of breath, SOB with excertion Cardiovascular: yes Chest Pain, yes Lt Headedness Gastrointestinal: Yes Nausea, Yes Constipation Genitourinary: YES Other (NOCTURIA) Musculoskeletal: Yes Muscular Weakness Neurological: Yes Weakness Skin: Yes Dry Skin Physical Exam General: Alert, Oriented X3, Cooperative, No acute distress HEENT: Atraumatic, PERRLA, EOMI, Mucous membr. moist/pink Lungs: Clear to auscultation, Normal air movement Heart: Regular rate, Normal S1, Normal S2, No murmurs Abdomen: Normal bowel sounds, Soft, No tenderness, No hepatosplenomegaly Skin: No rashes, No breakdown, No significant lesion Neuro: Normal speech, Cranial nerves 3-12 NL Psych/Mental Status: Mental status NL, Mood NL MUSCULOSKELETAL: No joint tenderness, No deformity, No swelling Vitals VITALS Vital Signs Date Time Temp Pulse Resp B/P (MAP) Pulse Ox O2 Delivery O2 Flow Rate FiO2 05/17/17 11:10 Room Air 05/17/17 11:00 97.6 61 20 103/56 (72) 98 97.6 Labs Labs Laboratory Tests Test 05/16/17 11:50 05/16/17 19:30 05/17/17 02:00 White Blood Count 7.1 x10^3/uL (4.0-11.0) 5.9 x10^3/uL (4.0-11.0) Red Blood Count 4.21 x10^6/uL (4.30-5.70) 4.13 x10^6/uL (4.30-5.70) Hemoglobin 13.1 g/dL (13.0-17.5) 12.8 g/dL (13.0-17.5) Hematocrit 39.1 % (39.0-53.0) 39.5 % (39.0-53.0) Mean Corpuscular Volume 93 fL (79-100) 95 fL (79-100) Mean Corpuscular Hemoglobin 31 pg (25-35) 31 pg (25-35) Mean Corpuscular Hemoglobin Concent 34 g/dL (31-37) 32 g/dL (31-37) Red Cell Distribution Width 14.1 % (11.5-14.5) 14.7 % (11.5-14.5) Platelet Count 172 x10^3/uL (140-400) 156 x10^3/uL (140-400) Neutrophils (%) (Auto) 68 % (31-73) 54 % (31-73) Lymphocytes (%) (Auto) 23 % (24-48) 31 % (24-48) Monocytes (%) (Auto) 5 % (0-9) 9 % (0-9) Eosinophils (%) (Auto) 3 % (0-3) 5 % (0-3) Basophils (%) (Auto) 1 % (0-3) 1 % (0-3) Neutrophils # (Auto) 4.8 x10^3uL (1.8-7.7) 3.2 x10^3uL (1.8-7.7) Lymphocytes # (Auto) 1.6 x10^3/uL (1.0-4.8) 1.8 x10^3/uL (1.0-4.8) Monocytes # (Auto) 0.4 x10^3/uL (0.0-1.1) 0.5 x10^3/uL (0.0-1.1) Eosinophils # (Auto) 0.2 x10^3/uL (0.0-0.7) 0.3 x10^3/uL (0.0-0.7) Basophils # (Auto) 0.0 x10^3/uL (0.0-0.2) 0.1 x10^3/uL (0.0-0.2) Sodium Level 138 mmol/L (136-145) 140 mmol/L (136-145) Potassium Level 5.3 mmol/L (3.5-5.1) 4.7 mmol/L (3.5-5.1) Chloride Level 106 mmol/L (98-107) 108 mmol/L (98-107) Carbon Dioxide Level 23 mmol/L (21-32) 18 mmol/L (21-32) Anion Gap 9 (6-14) 14 (6-14) Blood Urea Nitrogen 70 mg/dL (8-26) 66 mg/dL (8-26) Creatinine 3.4 mg/dL (0.7-1.3) 2.5 mg/dL (0.7-1.3) Estimated GFR (Cockcroft-Gault) 17.9 25.6 Glucose Level 122 mg/dL (70-99) 84 mg/dL (70-99) Calcium Level 9.0 mg/dL (8.5-10.1) 8.8 mg/dL (8.5-10.1) Troponin I Quantitative < 0.017 ng/mL (0.000-0.055) < 0.017 ng/mL (0.000-0.055) < 0.017 ng/mL (0.000-0.055) XE-Wlt-T-Type Natriuretic Peptide 71 pg/mL (0-124) Thyroid Stimulating Hormone (TSH) 4.241 uIU/mL (0.358-3.74) Triglycerides Level 236 mg/dL (0-150) Cholesterol Level 172 mg/dL (0-200) LDL Cholesterol, Calculated 95 mg/dL (0-100) VLDL Cholesterol, Calculated 47 mg/dL (0-40) Non-HDL Cholesterol Calculated 142 mg/dL (0-129) HDL Cholesterol 30 mg/dL (40-60) Cholesterol/HDL Ratio 5.7 Laboratory Tests Test 05/16/17 11:50 05/16/17 19:30 05/17/17 02:00 White Blood Count 7.1 x10^3/uL (4.0-11.0) 5.9 x10^3/uL (4.0-11.0) Red Blood Count 4.21 x10^6/uL (4.30-5.70) 4.13 x10^6/uL (4.30-5.70) Hemoglobin 13.1 g/dL (13.0-17.5) 12.8 g/dL (13.0-17.5) Hematocrit 39.1 % (39.0-53.0) 39.5 % (39.0-53.0) Mean Corpuscular Volume 93 fL (79-100) 95 fL (79-100) Mean Corpuscular Hemoglobin 31 pg (25-35) 31 pg (25-35) Mean Corpuscular Hemoglobin Concent 34 g/dL (31-37) 32 g/dL (31-37) Red Cell Distribution Width 14.1 % (11.5-14.5) 14.7 % (11.5-14.5) Platelet Count 172 x10^3/uL (140-400) 156 x10^3/uL (140-400) Neutrophils (%) (Auto) 68 % (31-73) 54 % (31-73) Lymphocytes (%) (Auto) 23 % (24-48) 31 % (24-48) Monocytes (%) (Auto) 5 % (0-9) 9 % (0-9) Eosinophils (%) (Auto) 3 % (0-3) 5 % (0-3) Basophils (%) (Auto) 1 % (0-3) 1 % (0-3) Neutrophils # (Auto) 4.8 x10^3uL (1.8-7.7) 3.2 x10^3uL (1.8-7.7) Lymphocytes # (Auto) 1.6 x10^3/uL (1.0-4.8) 1.8 x10^3/uL (1.0-4.8) Monocytes # (Auto) 0.4 x10^3/uL (0.0-1.1) 0.5 x10^3/uL (0.0-1.1) Eosinophils # (Auto) 0.2 x10^3/uL (0.0-0.7) 0.3 x10^3/uL (0.0-0.7) Basophils # (Auto) 0.0 x10^3/uL (0.0-0.2) 0.1 x10^3/uL (0.0-0.2) Sodium Level 138 mmol/L (136-145) 140 mmol/L (136-145) Potassium Level 5.3 mmol/L (3.5-5.1) 4.7 mmol/L (3.5-5.1) Chloride Level 106 mmol/L (98-107) 108 mmol/L (98-107) Carbon Dioxide Level 23 mmol/L (21-32) 18 mmol/L (21-32) Anion Gap 9 (6-14) 14 (6-14) Blood Urea Nitrogen 70 mg/dL (8-26) 66 mg/dL (8-26) Creatinine 3.4 mg/dL (0.7-1.3) 2.5 mg/dL (0.7-1.3) Estimated GFR (Cockcroft-Gault) 17.9 25.6 Glucose Level 122 mg/dL (70-99) 84 mg/dL (70-99) Calcium Level 9.0 mg/dL (8.5-10.1) 8.8 mg/dL (8.5-10.1) Troponin I Quantitative < 0.017 ng/mL (0.000-0.055) < 0.017 ng/mL (0.000-0.055) < 0.017 ng/mL (0.000-0.055) GK-Lul-N-Type Natriuretic Peptide 71 pg/mL (0-124) Thyroid Stimulating Hormone (TSH) 4.241 uIU/mL (0.358-3.74) Triglycerides Level 236 mg/dL (0-150) Cholesterol Level 172 mg/dL (0-200) LDL Cholesterol, Calculated 95 mg/dL (0-100) VLDL Cholesterol, Calculated 47 mg/dL (0-40) Non-HDL Cholesterol Calculated 142 mg/dL (0-129) HDL Cholesterol 30 mg/dL (40-60) Cholesterol/HDL Ratio 5.7 Assessment/Plan Assessment/Plan IMP DEHYDRATION CHEST PAIN BOGDAN MILD HYPERKALEMIA PLAN AGREE HOLDING MCKINLEY-I ALSO HOLD MAXZIDE CONT WITH IVF'S IF CR NO BETTER BY AM WILL CHECK SONO CHECK UA SYLVIA CALHOUN MD May 17, 2017 11:54
--- NOTE | 2017-05-17 12:15 | PDOC ---
SUBJECTIVE Subjective feels better, no dizziness OBJECTIVE Vital Signs Vital Signs Date Time Temp Pulse Resp B/P (MAP) Pulse Ox O2 Delivery O2 Flow Rate FiO2 05/17/17 11:10 Room Air 05/17/17 11:00 97.6 61 20 103/56 (72) 98 Room Air 97.6 05/17/17 07:15 98 Room Air 05/17/17 07:00 97.0 67 20 89/57 (68) 98 Room Air 97.0 05/17/17 03:00 98.2 58 18 113/59 (77) 97 Room Air 98.2 05/16/17 23:00 98.4 54 16 99/58 (72) 98 Room Air 98.4 05/16/17 20:44 96/58 (71) 05/16/17 20:33 96 Room Air 05/16/17 20:25 99/51 (67) 05/16/17 20:00 Room Air 05/16/17 19:00 96.9 58 20 83/47 (59) 98 Room Air 96.9 05/16/17 18:27 97.8 58 18 112/53 (72) 100 Room Air 97.8 05/16/17 15:00 97.7 82 20 115/67 (83) 91 Room Air 97.7 05/16/17 14:46 Room Air 05/16/17 12:53 60 111/59 (76) 99 Room Air 05/16/17 12:26 58 87/52 (64) 99 Room Air I & O Intake and Output 05/18/17 07:00 Output Total 1000 ml Balance -1000 ml Output Urine Total 1000 ml PHYSICAL EXAM Physical Exam stable , no change ASSESSMENT/PLAN Assessment/Plan 1- acute renal failure improving 2-dizziness likely due to dhydration 3-chest discomfort atypical agree with stress test by C.V 5-hx left lung nodule has been stable over [address] in 08/03 6-hypothyroid increase synthroid &-dyslipidemia with low HDL Problems: COMMENT Lab Laboratory Tests Test 05/16/17 19:30 05/17/17 02:00 Troponin I Quantitative < 0.017 ng/mL (0.000-0.055) < 0.017 ng/mL (0.000-0.055) Thyroid Stimulating Hormone (TSH) 4.241 uIU/mL (0.358-3.74) White Blood Count 5.9 x10^3/uL (4.0-11.0) Red Blood Count 4.13 x10^6/uL (4.30-5.70) Hemoglobin 12.8 g/dL (13.0-17.5) Hematocrit 39.5 % (39.0-53.0) Mean Corpuscular Volume 95 fL (79-100) Mean Corpuscular Hemoglobin 31 pg (25-35) Mean Corpuscular Hemoglobin Concent 32 g/dL (31-37) Red Cell Distribution Width 14.7 % (11.5-14.5) Platelet Count 156 x10^3/uL (140-400) Neutrophils (%) (Auto) 54 % (31-73) Lymphocytes (%) (Auto) 31 % (24-48) Monocytes (%) (Auto) 9 % (0-9) Eosinophils (%) (Auto) 5 % (0-3) Basophils (%) (Auto) 1 % (0-3) Neutrophils # (Auto) 3.2 x10^3uL (1.8-7.7) Lymphocytes # (Auto) 1.8 x10^3/uL (1.0-4.8) Monocytes # (Auto) 0.5 x10^3/uL (0.0-1.1) Eosinophils # (Auto) 0.3 x10^3/uL (0.0-0.7) Basophils # (Auto) 0.1 x10^3/uL (0.0-0.2) Sodium Level 140 mmol/L (136-145) Potassium Level 4.7 mmol/L (3.5-5.1) Chloride Level 108 mmol/L (98-107) Carbon Dioxide Level 18 mmol/L (21-32) Anion Gap 14 (6-14) Blood Urea Nitrogen 66 mg/dL (8-26) Creatinine 2.5 mg/dL (0.7-1.3) Estimated GFR (Cockcroft-Gault) 25.6 Glucose Level 84 mg/dL (70-99) Calcium Level 8.8 mg/dL (8.5-10.1) Triglycerides Level 236 mg/dL (0-150) Cholesterol Level 172 mg/dL (0-200) LDL Cholesterol, Calculated 95 mg/dL (0-100) VLDL Cholesterol, Calculated 47 mg/dL (0-40) Non-HDL Cholesterol Calculated 142 mg/dL (0-129) HDL Cholesterol 30 mg/dL (40-60) Cholesterol/HDL Ratio 5.7 NATALIA OZUNA MD May 17, 2017 12:15
[2017-05-17 15:00] VITALS: BP 87/47
[2017-05-17] MEDS: ENOXAPARIN 40 MG/0.4 ML SYRINGE. SQ SCH (17:39)
[2017-05-17 18:11] LABS: BILIRUBIN,URINE NEGATIVE (NEG); GLUCOSE,URINE NEGATIVE (NEG); NITRITE,URINE NEGATIVE (NEG); PROTEIN,URINE NEGATIVE (NEG-TRACE); UROBILINOGEN,URINE 0.2 mg/dL (0.2 mg/dL)
[2017-05-17 18:20] LABS: BACTERIA,URINE 0 /HPF (0-FEW); RBC,URINE 0 /HPF (0-2); WBC,URINE 0 /HPF (0-4)
[2017-05-17 19:00] VITALS: BP 102/56
[2017-05-17] MEDS: OMEGA-3 FATTY ACIDS/FISH OIL 1,000 MG CAPSULE. PO SCH (20:28)
[2017-05-17 23:00] VITALS: BP 110/56
[2017-05-18 03:00] VITALS: BP 101/59
[2017-05-18] MEDS: IV 1/2 NORMAL SALINE 1,000 ML IV SCH ×3 (03:14→20:37)
[2017-05-18 06:25] LABS: HEMATOCRIT 37.6 % (39.0-53.0); HEMOGLOBIN 12.7 g/dL (13.0-17.5); RED BLOOD COUNT 4.08 x10^6/uL (4.30-5.70); RED CELL DISTRIBUTION WIDTH 14.1 % (11.5-14.5); WHITE BLOOD COUNT 6.6 x10^3/uL (4.0-11.0)
[2017-05-18 06:46] LABS: CALCIUM 8.6 mg/dL (8.5-10.1); CREATININE 1.6 mg/dL (0.7-1.3); GFR 42.8
[2017-05-18 06:48] LABS: POTASSIUM 5.1 mmol/L (3.5-5.1)
[2017-05-18 07:00] VITALS: BP 110/48
[2017-05-18] MEDS: IPRATRPIUM/ALBUTEROL 0.5/2.5MG 3 ML NEBU. NEB SCH ×4 (07:13→19:42)
[2017-05-18] MEDS: LEVOTHYROXINE 25 MCG TABLET. PO SCH (07:30)
[2017-05-18] MEDS ORDERED: REGADENOSON 0.4 MG/5 ML DISP.SYRIN. IV ONE (09:15)
[2017-05-18] MEDS: PANTOPRAZOLE 40 MG TABLET.DR. PO SCH (10:54)
[2017-05-18] MEDS: OMEGA-3 FATTY ACIDS/FISH OIL 1,000 MG CAPSULE. PO SCH ×2 (10:54→20:37)
[2017-05-18 11:00] VITALS: BP 102/62
--- NOTE | 2017-05-18 11:56 | RAD ---
APPROVED REPORT Test Type: Pharmacological Stress Nurse/Tech: ryder frances Test Indications: chest pain Cardiac History: HTN, HIGH CHOLESTEROL, CHF, SEE EHR Medications: SEE EHR Medical History: REMOTE SMOKING HISTORY, SEE EHR Resting ECG: SR Resting Heart Rate: 75 bpm Resting Blood Pressure: 126/65mmHg Pretest Chest Pain: No chest pain Nurse/Tech Notes NO RESPIRATORY DISTRRESS NOTED, NO CHEST PAIN STATED. Consent: The procedure was explained to the patient in lay terms. Informed consent was witnessed. Primo eout was entered into [employer]. History and Stress Test performed by MODESTO Resendiz, PAULINA (Justen) (N) Pharm. Details Pharmacologic stress testing was performed using 0.4mg per 5ml of regadenoson given intravenously ove r 7-10 seconds. Stress Symptoms NONE STATED. POST EXERCISE Max HR: 93 bpm Max Blood Pressure: 126/65mmHg Chest Pain: No. Arrhythmia: No. ST Change: No. INTERPRETATION Stress EKG Conclusion: No evidence of stress induced EKG changes. Imaging Protocol IMAGE PROTOCOL: Stress Tc-99m/rest Tc-99m 2 days Rest: Stress: Viability: Radiopharm.Tc99m Sestamibi [id number] Img Date 05/18/2017 Inj-Img [id number]. Stress Admin Site: IV - Right HandAdministrator: MODESTO Resendiz, PAULINA (R)(N) STRESS DATA End Diast. Vol.91.0mlAv. Heart Rate72.0bpm End Syst. Vol.23.0mlCO Index BSA0.0L/min Myocardial Csxi820.0gEject. Pcyaqyha01.0% Stress Rates Pk. Fill Rate2.86EDV/secLVtime Pk. Fill 178.57msec Pk. Empty Rate3.39ESV/secLVtime Pk. Vdggi720.97msec 08/20 Pk. Fill1.48EDV/sec Stress Scores Regional WT1.00Summed WT3.00 Regional WM0.00Summed WM0.00 LV Perfusion Normal perfusion at stress. Wall Motion Normal wall motion. LV Perf. Quant 17 Seg. SSS2.00 Stress Defect Extent (% LAD)0.00Rest Defect Extent (% LAD)Rev. Defect Extent (% LAD)0.00 Stress Defect Extent (% LCX) 0.00Rest Defect Extent (% LCX)Rev. Defect Extent (% LCX)0.00 Stress Defect Extent (% RCA)0.00Rest Defect Extent (% RCA)Rev. Defect Extent (% RCA)0.00 Stress Defect Extent (% ANIVAL)0.00Rest Defect Extent (% ANIVAL)Rev. Defect Extent (% ANIVAL)0.00 Other Information Quality:Average Risk Assessment: Low Risk Conclusion 1. No evidence of stress induced EKG changes. 2. Normal perfusion at stress. Rest images not performed. 3. Diaphragmatic attenuation noted. 4. Normal EF at >70% 5. Low risk study
--- NOTE | 2017-05-18 12:28 | PDOC ---
Renal-Progress Notes Subjective Notes Notes NONE History of Present Illness Hx of present illness STABLE Vitals Vitals Vital Signs Date Time Temp Pulse Resp B/P (MAP) Pulse Ox O2 Delivery O2 Flow Rate FiO2 05/18/17 11:00 Room Air 05/18/17 07:15 100 05/18/17 07:00 97.7 69 16 110/48 (68) 97.7 Weight Weight [ ] Labs Labs Laboratory Tests Test 05/17/17 17:45 05/18/17 05:55 Urine Collection Type Unknown Urine Color Yellow Urine Clarity Clear Urine pH 5.0 Urine Specific [place] <=1.005 Urine Protein Negative mg/dL (NEG-TRACE) Urine Glucose (UA) Negative mg/dL (NEG) Urine Ketones (Stick) Negative mg/dL (NEG) Urine Blood Negative (NEG) Urine Nitrite Negative (NEG) Urine Bilirubin Negative (NEG) Urine Urobilinogen Dipstick 0.2 mg/dL (0.2 mg/dL) Urine Leukocyte Esterase Negative (NEG) Urine RBC 0 /HPF (0-2) Urine WBC 0 /HPF (0-4) Urine Bacteria 0 /HPF (0-FEW) White Blood Count 6.6 x10^3/uL (4.0-11.0) Red Blood Count 4.08 x10^6/uL (4.30-5.70) Hemoglobin 12.7 g/dL (13.0-17.5) Hematocrit 37.6 % (39.0-53.0) Mean Corpuscular Volume 92 fL (79-100) Mean Corpuscular Hemoglobin 31 pg (25-35) Mean Corpuscular Hemoglobin Concent 34 g/dL (31-37) Red Cell Distribution Width 14.1 % (11.5-14.5) Platelet Count 148 x10^3/uL (140-400) Sodium Level 140 mmol/L (136-145) Potassium Level 5.1 mmol/L (3.5-5.1) Chloride Level 110 mmol/L (98-107) Carbon Dioxide Level 21 mmol/L (21-32) Anion Gap 9 (6-14) Blood Urea Nitrogen 38 mg/dL (8-26) Creatinine 1.6 mg/dL (0.7-1.3) Estimated GFR (Cockcroft-Gault) 42.8 Glucose Level 96 mg/dL (70-99) Calcium Level 8.6 mg/dL (8.5-10.1) Review of Systems Constitutional: yes: weakness, alert, oriented Ears/Nose/Throat: Yes: no symptom reported Eyes: Yes: no symptom reported Cardiovascular: Yes chest pain Genitourinary: Yes: no symptom reported Musculoskeletal: Yes: no symptom reported Skin: Yes no symptom reported Psychiatric/Neurological: Yes: no symptom reported Endocrine: Yes: no symptom reported Physical Exam General Appearance: no apparent distress Respiratory: bilateral CTA Heart: S1S2 Abdomen: soft, bowel sounds present Genitourinary: bladder flat Extremities: pulses present Neurology: alert, oriented Assessment Assessment IMP BOGDAN-BETTER WITH CR DOWN TO 1.6 HYPERKALEMIA - BETTER DEHYDRATION CHEST PAIN PLAN CONT TO HOLD MAXZIDE AND MCKINLEY-I CONT IVF'S LABS IN AM SYLVIA CALHOUN MD May 18, 2017 12:28
--- NOTE | 2017-05-18 13:25 | PDOC ---
SUBJECTIVE Subjective feels better, Bp better, c/o diarrhea since yesterday OBJECTIVE Vital Signs Vital Signs Date Time Temp Pulse Resp B/P (MAP) Pulse Ox O2 Delivery O2 Flow Rate FiO2 05/18/17 11:00 95 16 102/62 (75) 99 Room Air 05/18/17 11:00 Room Air 05/18/17 08:00 Room Air 05/18/17 07:15 100 Room Air 05/18/17 07:00 97.7 69 16 110/48 (68) 97 Room Air 97.7 05/18/17 03:00 97.5 64 18 101/59 (73) 97 Room Air 97.5 05/17/17 23:00 97.7 68 18 110/56 (74) 98 Room Air 97.7 05/17/17 20:02 97 Room Air 05/17/17 20:00 Room Air 05/17/17 19:00 98.6 69 18 102/56 (71) 97 Room Air 98.6 05/17/17 15:27 Room Air 05/17/17 15:00 97.3 68 20 87/47 (60) 99 Room Air 97.3 PHYSICAL EXAM Physical Exam no change , looks better ASSESSMENT/PLAN Assessment/Plan 1- acute renal failure improving 2-dizziness likely due to dhydration 3-chest discomfort atypical stress test in progress 5-hx left lung nodule has been stable over [address] in 08/03 6-hypothyroid increase synthroid 7-dyslipidemia with low HDL 8- Diarrhea check c.diff and guaiac continue hydration Problems: COMMENT Lab Laboratory Tests Test 05/17/17 17:45 05/18/17 05:55 Urine Collection Type Unknown Urine Color Yellow Urine Clarity Clear Urine pH 5.0 Urine Specific Saxis <=1.005 Urine Protein Negative mg/dL (NEG-TRACE) Urine Glucose (UA) Negative mg/dL (NEG) Urine Ketones (Stick) Negative mg/dL (NEG) Urine Blood Negative (NEG) Urine Nitrite Negative (NEG) Urine Bilirubin Negative (NEG) Urine Urobilinogen Dipstick 0.2 mg/dL (0.2 mg/dL) Urine Leukocyte Esterase Negative (NEG) Urine RBC 0 /HPF (0-2) Urine WBC 0 /HPF (0-4) Urine Bacteria 0 /HPF (0-FEW) White Blood Count 6.6 x10^3/uL (4.0-11.0) Red Blood Count 4.08 x10^6/uL (4.30-5.70) Hemoglobin 12.7 g/dL (13.0-17.5) Hematocrit 37.6 % (39.0-53.0) Mean Corpuscular Volume 92 fL (79-100) Mean Corpuscular Hemoglobin 31 pg (25-35) Mean Corpuscular Hemoglobin Concent 34 g/dL (31-37) Red Cell Distribution Width 14.1 % (11.5-14.5) Platelet Count 148 x10^3/uL (140-400) Sodium Level 140 mmol/L (136-145) Potassium Level 5.1 mmol/L (3.5-5.1) Chloride Level 110 mmol/L (98-107) Carbon Dioxide Level 21 mmol/L (21-32) Anion Gap 9 (6-14) Blood Urea Nitrogen 38 mg/dL (8-26) Creatinine 1.6 mg/dL (0.7-1.3) Estimated GFR (Cockcroft-Gault) 42.8 Glucose Level 96 mg/dL (70-99) Calcium Level 8.6 mg/dL (8.5-10.1) NATALIA OZUNA MD May 18, 2017 13:25
[2017-05-18] MEDS ORDERED: LEVO25TA4 PO (13:31)
[2017-05-18] MEDS ORDERED: OMEG1CAP6 PO (13:31)
[2017-05-18 15:21] VITALS: BP 140/70
[2017-05-18] MEDS: ENOXAPARIN 40 MG/0.4 ML SYRINGE. SQ SCH (16:55)
[2017-05-18 17:22] LABS: NEG OBC FOB NEG; POS OBC FOB POS
[2017-05-18 19:00] VITALS: BP 129/82
[2017-05-18 22:56] VITALS: BP 113/60
[2017-05-19 03:00] VITALS: BP 113/65
[2017-05-19 04:52] LABS: HEMATOCRIT 36.3 % (39.0-53.0); HEMOGLOBIN 12.1 g/dL (13.0-17.5); RED BLOOD COUNT 3.87 x10^6/uL (4.30-5.70); RED CELL DISTRIBUTION WIDTH 14.2 % (11.5-14.5); WHITE BLOOD COUNT 6.5 x10^3/uL (4.0-11.0)
[2017-05-19 05:15] LABS: ALBUMIN 3.1 g/dL (3.4-5.0); CALCIUM 8.4 mg/dL (8.5-10.1); CREATININE 1.4 mg/dL (0.7-1.3); POTASSIUM 4.4 mmol/L (3.5-5.1); TOTAL BILIRUBIN 0.1 mg/dL (0.2-1.0); TOTAL PROTEIN 6.3 g/dL (6.4-8.2)
[2017-05-19 07:30] VITALS: BP 118/78
[2017-05-19] MEDS: IV 1/2 NORMAL SALINE 1,000 ML IV SCH (08:00)
[2017-05-19] MEDS: IPRATRPIUM/ALBUTEROL 0.5/2.5MG 3 ML NEBU. NEB SCH ×2 (08:29→11:30)
[2017-05-19] MEDS: OMEGA-3 FATTY ACIDS/FISH OIL 1,000 MG CAPSULE. PO SCH (09:01)
[2017-05-19] MEDS: PANTOPRAZOLE 40 MG TABLET.DR. PO SCH (09:01)
[2017-05-19] MEDS ORDERED: BUDE10.2 IH (10:19)
[2017-05-19] MEDS ORDERED: PROAIR HFA8.5 GM INH (10:19)
--- NOTE | 2017-05-19 10:23 | PDOC ---
SUBJECTIVE Subjective feels better, c.diff neg and guaiac neg, diarrhea is better OBJECTIVE Vital Signs Vital Signs Date Time Temp Pulse Resp B/P (MAP) Pulse Ox O2 Delivery O2 Flow Rate FiO2 05/19/17 08:29 98 Room Air 05/19/17 08:00 Room Air 05/19/17 07:30 99.0 68 18 118/78 (91) 98 Room Air 99.0 05/19/17 03:00 97.9 74 18 113/65 (81) 97 Room Air 97.9 05/18/17 22:56 98.1 70 18 113/60 (77) 98 Room Air 98.1 05/18/17 19:46 Room Air 05/18/17 19:46 100 Room Air 05/18/17 19:00 96.8 69 18 129/82 (98) 100 Room Air 96.8 05/18/17 15:21 96.4 76 18 140/70 (93) 98 Room Air 96.4 05/18/17 15:16 Room Air 05/18/17 11:00 95 16 102/62 (75) 99 Room Air 05/18/17 11:00 Room Air I & O Intake and Output 05/20/17 07:00 Intake Total 1080 ml Output Total 700 ml Balance 380 ml Intake Oral 1080 ml Output Urine Total 700 ml PHYSICAL EXAM Physical Exam lungs clear heart RRR abd soft ext no edema ASSESSMENT/PLAN Assessment/Plan 1- acute renal failure improved 2-dizziness likely due to dhydration 3-chest discomfort atypical stress test is negative 5-hx left lung nodule has been stable over [address] in 08/03 6-hypothyroid increase synthroid to 37.5 mcg 7-dyslipidemia with low HDL started fish oil 8- Diarrhea : c.diff and guaiac are negative 9-copd started Symbicort and proair 10- Hx HTN Bp ok now off meds will re evaluate in office next week home today if ok with renal Problems: COMMENT Lab Laboratory Tests Test 05/18/17 16:30 05/19/17 03:55 Stool Occult Blood Negative (NEG) White Blood Count 6.5 x10^3/uL (4.0-11.0) Red Blood Count 3.87 x10^6/uL (4.30-5.70) Hemoglobin 12.1 g/dL (13.0-17.5) Hematocrit 36.3 % (39.0-53.0) Mean Corpuscular Volume 94 fL (79-100) Mean Corpuscular Hemoglobin 31 pg (25-35) Mean Corpuscular Hemoglobin Concent 33 g/dL (31-37) Red Cell Distribution Width 14.2 % (11.5-14.5) Platelet Count 147 x10^3/uL (140-400) Sodium Level 140 mmol/L (136-145) Potassium Level 4.4 mmol/L (3.5-5.1) Chloride Level 108 mmol/L (98-107) Carbon Dioxide Level 21 mmol/L (21-32) Anion Gap 11 (6-14) Blood Urea Nitrogen 25 mg/dL (8-26) Creatinine 1.4 mg/dL (0.7-1.3) Estimated GFR (Cockcroft-Gault) 50.0 BUN/Creatinine Ratio 18 (6-20) Glucose Level 103 mg/dL (70-99) Calcium Level 8.4 mg/dL (8.5-10.1) Total Bilirubin 0.1 mg/dL (0.2-1.0) Aspartate Amino Transf (AST/SGOT) 14 U/L (15-37) Alanine Aminotransferase (ALT/SGPT) 22 U/L (16-63) Alkaline Phosphatase 71 U/L (46-116) Total Protein 6.3 g/dL (6.4-8.2) Albumin 3.1 g/dL (3.4-5.0) Albumin/Globulin Ratio 1.0 (1.0-1.7) NATALIA OZUNA MD May 19, 2017 10:23
--- NOTE | 2017-05-19 10:26 | PDOC3 ---
Discharge Summary* Date of Admission: May 16, 2017 Date of Discharge: May 19, 2017 Admitting Diagnosis Problems Medical Problems: (1) Acute renal failure Status: Acute (2) Chest pain Status: Acute (3) Dehydration Status: Acute (4) Dyspnea Status: Acute (5) Hyperkalemia Status: Acute Problems: Final Diagnosis 1- acute renal failure improved 2-dizziness likely due to dhydration 3-chest discomfort atypical stress test is negative 5-hx left lung nodule has been stable over [address] in 08/03 6-hypothyroid increase synthroid to 37.5 mcg 7-dyslipidemia with low HDL started fish oil 8- Diarrhea : c.diff and guaiac are negative 9-copd started Symbicort and proair 10- Hx HTN Bp ok now off meds will re evaluate in office next week Problems Medical Problems: (1) Acute renal failure Status: Acute (2) Chest pain Status: Acute (3) Dehydration Status: Acute (4) Dyspnea Status: Acute (5) Hyperkalemia Status: Acute CONSULTS Renal, Cardiology Procedures MPI, CXR Brief Hospital Course Mr. Fatima is a 71 old [sex] who presented with [ ] Disposition/Orders: D/C to Home CONDITION AT DISCHARGE: Improved Diet: Cardiac Scheduled Levothyroxine Sodium (Levothyroxine Sodium), 25 MCG PO DAILYAC, (Reported) Lisinopril (Lisinopril), 1 TAB PO DAILY, (Reported) Triamterene/Hydrochlorothiazid (Triamterene-Hctz 37.5-25 Mg Tb), 1 TAB PO DAILY, (Reported) Discontinued Medications Budesonide/Formoterol Fumarate (Symbicort 160-4.5 Mcg Inhaler), 1 PUFF IH BID, ( Reported) Cholecalciferol (Vitamin D3) (Vitamin D), 1 CAP PO DAILY, (Reported) Triamterene/Hydrochlorothiazid (Triamterene-Hctz 37.5-25 Mg Cp), 1 CAP PO DAILY, (Reported) FOLLOW UP APPOINTMENT: 1 week in office of Bp meds, just Synthroid and fish oil and symbicort and proair Time Spent Total time spent with patient [] minutes for coordination of care, counseling, and education. NATALIA OZUNA MD May 19, 2017 10:26
[2017-05-19 10:30] VITALS: BP 112/70
[2017-05-19] MEDS: LEVOTHYROXINE 25 MCG TABLET. PO SCH (10:37)
--- NOTE | 2017-05-19 11:17 | PDOC ---
Renal-Progress Notes Subjective Notes Notes STILL HAS OCC DIARRHEA History of Present Illness Hx of present illness STABLE Vitals Vitals Vital Signs Date Time Temp Pulse Resp B/P (MAP) Pulse Ox O2 Delivery O2 Flow Rate FiO2 05/19/17 10:30 96.8 69 18 112/70 (84) 97 Room Air 96.8 Weight Weight [ ] I.O. Intake and Output Intake and Output 05/20/17 07:00 Intake Total 1080 ml Output Total 700 ml Balance 380 ml Intake Oral 1080 ml Output Urine Total 700 ml Labs Labs Laboratory Tests Test 05/18/17 16:30 05/19/17 03:55 Stool Occult Blood Negative (NEG) White Blood Count 6.5 x10^3/uL (4.0-11.0) Red Blood Count 3.87 x10^6/uL (4.30-5.70) Hemoglobin 12.1 g/dL (13.0-17.5) Hematocrit 36.3 % (39.0-53.0) Mean Corpuscular Volume 94 fL (79-100) Mean Corpuscular Hemoglobin 31 pg (25-35) Mean Corpuscular Hemoglobin Concent 33 g/dL (31-37) Red Cell Distribution Width 14.2 % (11.5-14.5) Platelet Count 147 x10^3/uL (140-400) Sodium Level 140 mmol/L (136-145) Potassium Level 4.4 mmol/L (3.5-5.1) Chloride Level 108 mmol/L (98-107) Carbon Dioxide Level 21 mmol/L (21-32) Anion Gap 11 (6-14) Blood Urea Nitrogen 25 mg/dL (8-26) Creatinine 1.4 mg/dL (0.7-1.3) Estimated GFR (Cockcroft-Gault) 50.0 BUN/Creatinine Ratio 18 (6-20) Glucose Level 103 mg/dL (70-99) Calcium Level 8.4 mg/dL (8.5-10.1) Total Bilirubin 0.1 mg/dL (0.2-1.0) Aspartate Amino Transf (AST/SGOT) 14 U/L (15-37) Alanine Aminotransferase (ALT/SGPT) 22 U/L (16-63) Alkaline Phosphatase 71 U/L (46-116) Total Protein 6.3 g/dL (6.4-8.2) Albumin 3.1 g/dL (3.4-5.0) Albumin/Globulin Ratio 1.0 (1.0-1.7) Review of Systems Constitutional: yes: weakness, alert, oriented Ears/Nose/Throat: Yes: no symptom reported Eyes: Yes: no symptom reported Cardiovascular: Yes chest pain Genitourinary: Yes: no symptom reported Musculoskeletal: Yes: no symptom reported Skin: Yes no symptom reported Psychiatric/Neurological: Yes: no symptom reported Endocrine: Yes: no symptom reported Physical Exam General Appearance: no apparent distress Respiratory: bilateral CTA Heart: S1S2 Abdomen: soft, bowel sounds present Genitourinary: bladder flat Extremities: pulses present Neurology: alert, oriented Assessment Assessment IMP BOGDAN-BETTER WITH CR DOWN TO 1.4 HYPERKALEMIA - RESOLVED DEHYDRATION PLAN CONT TO HOLD MAXZIDE AND MCKINLEY-I PROB RESUME ABOVE MEDS NEEDED ON OP BASIS STOP IVF'S OK TO D/C FROM RENAL STANDPOINT SYLVIA CALHOUN MD May 19, 2017 11:16
== END 2017-05-19 14:00 | disposition home or self-care (01) | DRG 683 ==
LOC: ER 11:13 → 5 NORTH 12:47
PROVIDERS: ADMIT Internal Medicine; ATTEND Internal Medicine
DX: N17.9 Acute kidney failure, unspecified (principal); E44.1 Mild protein-calorie malnutrition; E87.5 Hyperkalemia; I11.0 Hypertensive heart disease with heart failure; I50.9 Heart failure, unspecified; K52.9 Noninfective gastroenteritis and colitis, unspecified; E86.0 Dehydration; E03.9 Hypothyroidism, unspecified; E78.5 Hyperlipidemia, unspecified; F17.210 Nicotine dependence, cigarettes, uncomplicated; J44.9 Chronic obstructive pulmonary disease, unspecified; R91.1 Solitary pulmonary nodule; E78.00 Pure hypercholesterolemia, unspecified; Z82.49 Family history of ischemic heart disease and other diseases of the circulatory system
CPT/HCPCS: 36415; 71010; 78452; 80048; 80053; 80061; 81001; 82274; 83880; 84443; 84484; 85025; 85027; 87324; 90686; 90732; 93005; 93017; 94250; 94640; 94760; 96361; 96374; 96375; A9500; J1650; J2405; J2785; J7040; J7050; J7620; 99285-25; J7030

== ENCOUNTER 2018-12-10 08:38 | Outpatient (CLI) | payer BC ==
[~2018-12-10] VITALS: Ht 188 cm; Wt 122.5 kg
[2018-12-10] VITALS (12 sets, daily range): BP systolic 118–144; BP diastolic 61–87
[~2018-12-10 08:38] MED LIST changes: +ALBU2.5V8 INH; +LISI-130 PO; +OMEG1CAP6 PO; +TRIA1TAB3 PO
[2018-12-10] MEDS ORDERED: ATOR10TA60 PO (09:44)
[2018-12-10] MEDS ORDERED: TRIA1TAB3 PO (09:44)
[2018-12-10] MEDS ORDERED: COLC0.6T34 PO (09:44)
[2018-12-10 09:50] LABS: HEMATOCRIT 47.9 % (39.0-53.0); HEMOGLOBIN 15.7 g/dL (13.0-17.5); RED BLOOD COUNT 5.12 x10^6/uL (4.30-5.70); RED CELL DISTRIBUTION WIDTH 14.8 % (11.5-14.5)
[2018-12-10 09:55] LABS: CALCIUM 8.9 mg/dL (8.5-10.1); CREATININE 1.5 mg/dL (0.7-1.3); GFR 45.9; POTASSIUM 4.2 mmol/L (3.5-5.1)
[2018-12-10 10:00] LABS: PROTHROMBIN TIME PATIENT 14.5 SEC (11.7-14.0)
[2018-12-10] MEDS ORDERED: IODIXANOL 320 MG/ML 100 ML VIAL. ONE (10:35)
[2018-12-10] MEDS ORDERED: LIDOCAINE 1% Multi-Dose 20 ML VIAL. ONE (10:35)
--- NOTE | 2018-12-10 10:54 | CARD ---
MR#: [id number] Date of Study: 12/10/2018 Ordering Physician: ADRIEL CLAROS, Referring Physician: ADRIEL CLAROS, Tech: Sayra Logan APPROVED REPORT EXAM: Two-dimensional and M-mode echocardiogram with Doppler and color Doppler. Other Information Quality : AverageHR: 52bpm INDICATION Chest Pain RISK FACTORS Hyperlipidemia 2D DIMENSIONS RVDd3.5 (2.9-3.5cm)Left Atrium(2D)3.1 (1.6-4.0cm) IVSd1.3 (0.7-1.1cm)Aortic Root(2D)3.5 (2.0-3.7cm) LVDd4.8 (3.9-5.9cm)LVOT Diameter2.2 (1.8-2.4cm) PWd1.1 (0.7-1.1cm)LVDs3.1 (2.5-4.0cm) FS (%) 35.0 %SV68.5 ml LVEF(%)64.1 (>50%) Aortic Valve AoV Peak Caleb.112.7cm/sAoV VTI23.4cm AO Peak GR.5.1mmHgLVOT Peak Caleb.82.3cm/s LVOT VTI 20.96cmAO Mean GR.2mmHg RAJ (VMAX)1.05kc9MKL (VTI)3.36cm2 Mitral Valve MV E Jjwehezc38.1cm/sMV DECEL HRJI917hv MV A Wciwuygi95.1cm/sMV LJB93ua E/A Ratio1.0MVA (PHT)3.81cm2 TDI E/Lateral E'8.1E/Medial E'10.6 Pulmonary Valve PV Peak Hdcpwygv76.2cm/sPV Peak Grad.3mmHg Tricuspid Valve TR P. Tidkoksv970jc/sRAP CETSNMAN9jmDm TR Peak Gr.59kyJrUKIL09njBy Pulmonary Vein S1 Vgmdxuoj91.9cm/sD2 Encidoqv48.7cm/s PVa lhhlymfa748mvjw LEFT VENTRICLE The left ventricle is normal size. There is mild to moderate concentric left ventricular hypertrophy. The left ventricular systolic function is normal and the ejection fraction is within normal range. T he Ejection Fraction is 50-55%. There is normal LV segmental wall motion. Transmitral Doppler flow pa ttern is Grade II-pseudonormal filling dynamics. RIGHT VENTRICLE The right ventricle is normal size. There is normal right ventricular wall thickness. The right ventr icular systolic function is normal. ATRIA The left atrium size is normal. The right atrium is borderline dilated. The interatrial septum is int act with no evidence for an atrial septal defect or patent foramen ovale as noted on 2-D or Doppler i maging. AORTIC VALVE The aortic valve is thickened but opens well. Doppler and Color Flow revealed no significant aortic r egurgitation. There is no significant aortic valvular stenosis. MITRAL VALVE The mitral valve is normal in structure and function. There is no evidence of mitral valve prolapse. There is no mitral valve stenosis. Doppler and Color-flow revealed trace mitral regurgitation. TRICUSPID VALVE The tricuspid valve is normal in structure and function. Doppler and Color Flow revealed trace tricus pid regurgitation with an estimated PAP of 30 mmHg. There is no tricuspid valve stenosis. PULMONIC VALVE The pulmonic valve is not well visualized. Doppler and Color Flow revealed no pulmonic valvular regur gitation. GREAT VESSELS The aortic root is normal in size. The IVC is normal in size and collapses >50% with inspiration. PERICARDIAL EFFUSION There is no evidence of significant pericardial effusion. Critical Notification Critical Value: No <Conclusion> The left ventricular systolic function is normal and the ejection fraction is within normal range. Th e Ejection Fraction is 50-55%. There is normal LV segmental wall motion. Signed by : Adriel Claros, Electronically Approved : 12/10/2018 10:53:45
[2018-12-10] MEDS ORDERED: VERAPAMIL 5 MG/2 ML VIAL. ONE (10:59)
[2018-12-10] MEDS ORDERED: fentaNYL PF VIAL 100 MCG/2 ML VIAL ONE (10:59)
[2018-12-10] MEDS ORDERED: MIDAZOLAM HCL/PF 2 MG/2 ML VIAL. ONE (10:59)
[2018-12-10] MEDS ORDERED: HEPARIN for IV BOLUS 10,000 UNIT/10 ML VIAL. ONE (10:59)
[2018-12-10] MEDS ORDERED: NITROGLYCERIN 200 MCG/2 ML SYRINGE FOR CATH/VASC LAB. ONE (11:00)
--- NOTE | 2018-12-10 11:06 | PDOC ---
MODERATE SEDATION ASSESSMENT RISKS/ALTERNATIVES Risks/Alternatives Risks and alternatives of this type of sedation and procedure discussed with: RISK/ALTERNATIVES: Patient H & P ON CHART H & P H & P on chart and reviewed for co-morbid conditions and appropriate labs. H&P ON CHART: Yes STATUS PREG STATUS ASSESSED: N/A MEDS/ALLERGIES REVIEWED Meds/Allergies Reviewed Medications and Allergies including time and route of recently administered narcotics and sedatives. MEDS/ALLERGIES REVIEWED: Yes ASA RATING ASA RATING: II AIRWAY ASSESSMENT Airway Assessment Airway patency, oral function limitations, presence of caps, crowns, dentures, partials, and ability to extend neck assessed. AIRWAY ASSESSMENT: Yes MALLAMPATI SCORE MALLAMPATI SCORE: II PRE-SEDATION ASSESSMENT PRE-SEDATION ASSESSMENT: Yes ADRIEL LOWERY MD Dec 10, 2018 11:06
[2018-12-10] MEDS ORDERED: LIDOCAINE 1% Multi-Dose 20 ML VIAL. INJ ONE (11:30)
[2018-12-10] MEDS ORDERED: IV NORMAL SALINE 500ML BAG 500 ML IV ONE (11:30)
[2018-12-10] MEDS ORDERED: HEPARIN for IV BOLUS 10,000 UNIT/10 ML VIAL. IART ONE (11:30)
[2018-12-10] MEDS ORDERED: NITROGLYCERIN 200 MCG/2 ML SYRINGE FOR CATH/VASC LAB. IART ONE (11:30)
[2018-12-10] MEDS ORDERED: fentaNYL PF VIAL 100 MCG/2 ML VIAL IV ONE (11:30)
[2018-12-10] MEDS ORDERED: MIDAZOLAM HCL/PF 2 MG/2 ML VIAL. IV ONE (11:30)
[2018-12-10] MEDS ORDERED: VERAPAMIL 5 MG/2 ML VIAL. IART ONE (11:30)
[2018-12-10] MEDS ORDERED: IODIXANOL 320 MG/ML 100 ML VIAL. IART ONE (11:30)
[2018-12-10] MEDS ORDERED: CONTRAST GIVEN. MC PRN (11:45)
--- NOTE | 2018-12-10 12:01 | CARD ---
MR#: [id number] Date of Study: 12/10/2018 Ordering Physician: ADRIEL CLAROS, Referring Physician: ADRIEL CLAROS, Tech: KAMRAN QUILES RTR APPROVED REPORT Technologist: KAMRAN QUILES RTR Nurse: Fang Wu R.N. Procedure(s) performed: MODERATE SEDATION TIME:20 MIN FLUORO TIME: 1.1 DOSE: 43 GYCM2 CONTRAST: 42 C, Coronary angiography HISTORY The patient is a 73 year-old male with a history of : hypertension, dyslipidemia. INDICATION The indication(s) include : unstable angina , dyspnea. CSHA Clinical Frailty Scale CSHA Clinical Frailty Scale: Managing Well Heart Failure Heart Failure: No PROCEDURE NARRATIVE INFORMED CONSENT: After explaining the risks and benefits of the procedure and alternatives, informed consent was obtained. The patient was brought electively to the cardiac catheterization lab. A timeout was performed confi rming the patient's name, date of , procedure, and site of procedure. All necessary personnel w ere wearing the appropriate protective equipment and radiation monitor devices. (See nursing notes for medications administered). ACCESS: The right wrist was sterilely prepped and draped in the usual fashion. The right wrist was infiltrat ed with 1 mL of 2% lidocaine for subcutaneous anesthesia. A 6 Lao Terumo glide sheath was inserte d into the right radial artery without difficulty. CORONARY ANGIOGRAPHY: Right and left coronary angiography was performed using a 6Fr TIG 4.0 catheter. Left ventricular en d diastolic pressure was obtained with a TIG catheter and pullback was performed. All catheter excha nges and advancements were performed over a guidewire. CLOSURE: At case completion the right radial sheath was removed and a Terumo radial band was applied with 13 m l of air. COMPLICATIONS: The patient tolerated the procedure well and there were no immediate complications. FINDINGS: HEMODYNAMICS: LVEDP 8 mm Hg No gradient on LV to aortic pullback. AO: 120/80 LEFT VENTRICULOGRAM: Deferred due to known normal EF by echo. CORONARY ANGIOGRAPHY: LM is a large caliber vessel with normal angiographic appearance. LAD is a small calibe vessel with mild diffuse luminal irregularities. LCx is a is a very large caliber dominant vessel of the coronary system and there is a proximal 20% s tenosis. OM1 is a moderate caliber vessel with normal angiographic appearance. OM2 is a small caliber vessel with normal angiographic appearance. LPDA is a moderate caliber vessel with normal angiographic appearance. RCA is a small caliber non-dominant vessel with a mid 50% stenosis. Conclusion 1. Normal left sided filling pressures. 2. Left dominant system without any significant obstructive coronary disease. Recommendations Aggressive Medical Therapy Signed by : Adriel Claros, Electronically Approved : 12/10/2018 12:01:19
--- NOTE | 2018-12-10 14:48 | NUR ---
Discharge Note: JENA THAKKAR Discharge instructions and discharge home medications reviewed with Spouse and a copy given. All questions have been answered and understanding verbalized. Patient ate lunch with no issues, vitals stable. The following instructions and handouts were given: Moderate Sedation, radial site care and coronary angiography. Discontinued lines and drains: left hand PIV, dressing clean dry intact. Patient discharged to home with via wheelchair to private [facility].
== END 2018-12-10 14:35 | disposition home or self-care (01) ==
LOC: ECHO 08:38
PROVIDERS: ATTEND Internal Medicine Cardiovascular Disease
DX: I25.110 Atherosclerotic heart disease of native coronary artery with unstable angina pectoris (principal); I10 Essential (primary) hypertension; E78.5 Hyperlipidemia, unspecified; J44.9 Chronic obstructive pulmonary disease, unspecified; I08.1 Rheumatic disorders of both mitral and tricuspid valves; Z83.6 Family history of other diseases of the respiratory system; Z82.49 Family history of ischemic heart disease and other diseases of the circulatory system; Z87.891 Personal history of nicotine dependence; Z79.899 Other long term (current) drug therapy
CPT/HCPCS: 36415; 80048; 85027; 85610; 93306; 93458; 99152; C1769; C1892; J1644; J2250; J3010; J3490; J7040; Q9967

== ENCOUNTER → 2019-06-11 | Outpatient (CLI) | payer BC ==
[2018-12-10 14:00] VITALS: BP 135/73
[~2019-06-11] MED LIST changes: +ATOR10TA60 PO; +COLC0.6T34 PO
--- NOTE | 2019-06-11 07:56 | RAD ---
Complete abdominal ultrasound 06/11/2019 7:00 AM Clinical History: Abnormal liver function tests. Technique: Ultrasound examination of the abdomen was performed, and multiple static images were submitted for review. Comparison: None Findings: Pancreas is poorly visualized. Visualized portions of the pancreas temperature no acute normality. Visualized portions of the aorta and IVC are grossly unremarkable. Liver is normal in size measuring 15 cm longitudinally. The liver is diffusely echogenic most likely reflecting hepatic steatosis. Portal venous flow appears to be in the normal direction. No focal hepatic lesions are identified on provided imaging. The gallbladder demonstrates no evidence of wall thickening, stones, or sludge. It. Common bile duct is nondilated measuring 3 mm. The spleen is normal in size measuring 11 cm longitudinally. There is a peripelvic cyst in the left kidney measuring 2.7 cm. Left kidney is otherwise unremarkable measuring 12.2 cm in length. Right kidney measures 11.5 cm in length. 3 relatively simple appearing cysts are seen in the right kidney. Within the superior pole there is a 3.6 cm cyst. Within the mid kidney there is a 5.7 cm cyst. And within the mid right kidney measures 1.6 cm cyst. Impression: 1. Probable hepatic steatosis 2. Simple appearing bilateral renal cysts Electronically signed by: Kenroy Johnston MD (06/11/2019 7:53 AM) [facility]
== END | disposition home or self-care (01) ==
LOC: US 06:39
PROVIDERS: ATTEND Internal Medicine Gastroenterology
DX: N28.1 Cyst of kidney, acquired (principal)
CPT/HCPCS: 76700

== ENCOUNTER → 2019-06-28 | Day surgery (SDC) | payer BC ==
[~2019-06-28] MED LIST changes: +HYDROmorphone 2 MG/ML VIAL IV PRN; +IV RINGERS,LACTATED 1000ML 1,000 ML IV SCH; +LIDOCAINE 1% PF 2 ML VIAL. ID PRN; +MORPHINE SULFATE 2 MG/ML VIAL. IV PRN; +ONDANSETRON PF 4 MG/2 ML VIAL. IV PRN; +PROCHLORPERAZINE 10 MG/2 ML VIAL. IV PRN; +PROPOFOL 40 ML IV ONE; +fentaNYL PF VIAL 100 MCG/2 ML VIAL IV PRN
--- NOTE | 2019-06-28 15:29 | PDOC4 ---
PROCEDURE Procedure EGD/biopsies, Colonoscopy/biopsy Indications: dyspepsia/screening Meds: per anesthesia Findings: E--Grade III esophagitis at 40cm. G--Tiny 1-2mm ulcer with hematin, greater curve antrum. Biopsies antrum. D--normal to second portion. LISA--normal --'Scope advanced to cedum. Mucosa normal. Scattered diverticula, sigmoid. 4- 5mm polyp, mid-sigmoid, biopsied off. Small IH's on retroflex. Radha. well. IMP: Erosive esophagitis Tiny gastric ulcer Colon polyp Diverticulosis Internal hemorrhoids REC: Await path. PPI daily. F/u with me in 2 weeks. Resume other med, diet as before. Any repeat exams pending path. Should consider repeating EGD after 6- 8 weeks of PPI to r/o Anderson's. PHIL VALERIO MD Jun 28, 2019 15:29
[2019-06-28 15:58] VITALS: BP 139/76
--- NOTE | 2019-06-30 16:06 | PATHOLOGY ---
[facility] Accession Number: [id number] . 01 Material submitted: . PART A: stomach - ANTRUM BIOPSY PART B: colon - SIGMOID POLYP BIOPSY. Modifiers: sigmoid . 01 Clinical history: . Dyspepsia, screening . 02 Diagnosis: A. Gastric biopsies, antrum: - Chronic gastritis, mild. . B. Colon biopsy, sigmoid polyp: - Hyperplastic polyp. (JPM:reji; 06/30/2019) S 06/30/2019 0945 Local . 02 Comment: Sections of the gastric biopsy reveal segments of gastric antral and antral/body transition mucosa showing congestion and very mild chronic inflammation. A properly controlled immunoperoxidase stain for Helicobacter is negative for Helicobacter organisms. There is no evidence of malignancy. . Sections of the sigmoid colon biopsy reveal a hyperplastic polyp. There are no adenomatous changes or evidence of malignancy. (JPM:reji; 06/30/2019) . . Special stain performed: Immunoperoxidase stain for Helicobacter on A1. . 02 Electronically signed: . Mayco Kohler MD, Pathologist NPI- [id number] . 01 Gross description: . A. The specimen is received in formalin, labeled "Kushal, Simone, antrum BX", are two irregular segments of browne soft tissue measuring 0.5 cm in greatest dimension each. Entirely submitted in A1. . B. The specimen is received in formalin, labeled "Kushal, Simone, sigmoid polyp", is a segment of browne soft tissue measuring 0.5 cm in greatest dimension. Entirely submitted in B1. ([facility]; 06/29/2019) [facility] 06/29/2019 1553 Local . 02 Pathologist provided ICD-10: K29.50, K63.5 . 02 CPT . 373731, 740497, [id number] Specimen Comment: A courtesy copy of this report has been sent to [phone], [phone] Specimen Comment: [id number] Specimen Comment: Report sent to / DR PENNY Specimen Comment: A duplicate report has been generated due to demographic updates. Performed at: 01 [facility] [address] [facility] [address], [place] [id number] MD Karel Lepe MD Phone: [phone] Performed at: 02 [facility] [address] [place], [place] [id number] MD Mayco Kohler MD Phone: [phone]
== END ==
LOC: ENDOS 11:53
PROVIDERS: ATTEND Internal Medicine Gastroenterology
DX: Z12.11 Encounter for screening for malignant neoplasm of colon (principal); K29.50 Unspecified chronic gastritis without bleeding; K63.5 Polyp of colon; K57.30 Diverticulosis of large intestine without perforation or abscess without bleeding; K64.0 First degree hemorrhoids; K22.70 Barrett's esophagus without dysplasia; K21.0 Gastro-esophageal reflux disease with esophagitis; K25.9 Gastric ulcer, unspecified as acute or chronic, without hemorrhage or perforation; I10 Essential (primary) hypertension; E03.9 Hypothyroidism, unspecified; E78.5 Hyperlipidemia, unspecified; J44.9 Chronic obstructive pulmonary disease, unspecified; Z98.890 Other specified postprocedural states
CPT/HCPCS: 43239; 45380; 88305; 88342; J2704

== ENCOUNTER → 2019-08-09 | Day surgery (SDC) | payer BC ==
[~2019-08-09] MED LIST changes: -HYDROmorphone 2 MG/ML VIAL IV PRN; -LIDOCAINE 1% PF 2 ML VIAL. ID PRN; +LIDOCAINE 2% PF 5 ML VIAL. ONE; -MORPHINE SULFATE 2 MG/ML VIAL. IV PRN; +OMEP20TA63 PO; -ONDANSETRON PF 4 MG/2 ML VIAL. IV PRN; -PROCHLORPERAZINE 10 MG/2 ML VIAL. IV PRN; -fentaNYL PF VIAL 100 MCG/2 ML VIAL IV PRN
--- NOTE | 2019-08-09 13:04 | PDOC4 ---
PROCEDURE Procedure EGD Indication: r/o Anderson's after healing high-grade GERD Meds: per anesthesia Findings: E--Healed reflux at 45cm. No Anderson's. G-Normal D--Normal to second portion. Radha. well. IMP: Healed reflux w/o Anderson's. REC: Continue PPI chronically. December f/u with me prn any problems or questions. PHIL VALERIO MD Aug 09, 2019 13:04
[2019-08-09 13:25] VITALS: BP 146/86
== END ==
LOC: ENDOS 12:07
PROVIDERS: ATTEND Internal Medicine Gastroenterology
DX: K22.70 Barrett's esophagus without dysplasia (principal); K21.9 Gastro-esophageal reflux disease without esophagitis; Z98.890 Other specified postprocedural states; Z86.010 Personal history of colon polyps
CPT/HCPCS: 43235; J2001; J2704

== ENCOUNTER → 2020-01-21 | Outpatient (CLI) | payer BC ==
[2019-08-09 13:25] VITALS: BP 146/86
[~2020-01-21] MED LIST changes: -IV RINGERS,LACTATED 1000ML 1,000 ML IV SCH; -LIDOCAINE 2% PF 5 ML VIAL. ONE; -PROPOFOL 40 ML IV ONE
[2020-01-21 12:51] LABS: ALBUMIN 3.2 g/dL (3.4-5.0); ALBUMIN/GLOBULIN RATIO 0.8 (1.0-1.7); CALCIUM 8.6 mg/dL (8.5-10.1); CREATININE 1.5 mg/dL (0.7-1.3); GFR 45.7; POTASSIUM 3.7 mmol/L (3.5-5.1); TOTAL BILIRUBIN 0.7 mg/dL (0.2-1.0); TOTAL PROTEIN 7.1 g/dL (6.4-8.2)
== END ==
LOC: LAB 11:41
PROVIDERS: ATTEND Internal Medicine Cardiovascular Disease
DX: R06.00 Dyspnea, unspecified (principal)
CPT/HCPCS: 36415; 80053; 83880

== ENCOUNTER → 2020-02-09 | Outpatient (CLI) | payer BC ==
[2019-08-09 13:25] VITALS: BP 146/86
--- NOTE | 2020-02-09 09:05 | RAD ---
CT CHEST WO CONTRAST Indication: Lung nodule Technique: Noncontrast CT imaging was performed of the chest, multiplanar reconstruction images submitted. One or more of the following individualized dose reduction techniques were utilized for this examination: 1. Automated exposure control 2. Adjustment of the mA and/or kV according to patient size 3. Use of iterative reconstruction technique. Comparison: February 07, 2017 Findings: Previously seen subpleural left upper lobe focus of parenchymal density as best seen image 15 series 2 is unchanged, measures about 1.2 cm AP by 0.7 cm transverse. Some subpleural septal thickening with associated likely mild calcification of the right lower lobe greater near the base is similar. There is no new suspicious pulmonary nodularity. There is no new infiltrate, pleural or pericardial fluid, or pneumothorax. There is coronary calcification. No new significantly enlarged nodes are identified of the chest. There is some scattered calcified plaque of the thoracic aorta. Thoracic aortic caliber is stable, somewhat ectatic ascending thoracic aorta about 3 cm. There are some small right pericardiophrenic nodes as seen previously. There is prominent splenic arterial calcification. There is multilevel thoracic spondylosis. There is again bilateral gynecomastia. IMPRESSION: 1. Findings are unchanged comparing with 2017 exam including focus of left upper lobe subpleural parenchymal density, no new suspicious pulmonary nodularity. 2. There is coronary calcification Electronically signed by: Christiano Connolly MD (02/09/2020 9:02 AM) [place] [id number]
== END | disposition home or self-care (01) ==
LOC: CT 08:25
PROVIDERS: ATTEND Internal Medicine Critical Care Medicine
DX: R91.1 Solitary pulmonary nodule (principal); J98.4 Other disorders of lung; I70.0 Atherosclerosis of aorta; I25.10 Atherosclerotic heart disease of native coronary artery without angina pectoris; I70.8 Atherosclerosis of other arteries; M47.894 Other spondylosis, thoracic region; N62 Hypertrophy of breast
CPT/HCPCS: 71250

== ENCOUNTER 2020-03-06 10:14 | Emergency (ER) | payer BC ==
[~2020-03-06] VITALS: Ht 189.2 cm; Wt 100.0 kg
--- NOTE | 2020-03-06 10:43 | PHYS DOC ---
Past Medical History Past Medical History: CHF, High Cholesterol, Hypertension, Hypothyroid Additional Past Medical Histor: Gout, Past Surgical History: Other Additional Past Surgical Histo: L4 LAMINECTOMY, PILONIDAL CYST, BILATERAL ARM SX, BILATERAL WRIST SX Past Surgical History Exploratory lap with a liver laceration Smoking Status: Former Smoker Alcohol Use: Occasionally Drug Use: None General Adult EDM: Chief Complaint: CHEST PAIN HPI: HPI: Patient is a 74 year old male who presents to the emergency department with complaints of shortness of breath for the last 3 to 4 days that increases with activity. Patient reports that his chest feels tight with the shortness of breath. He denies any cough, fever, back pain, nausea, vomiting, diaphoresis, abdominal pain, or rash. Patient reports that he has had diarrhea, 2-3 episodes over the last 24 hours. He denies any rectal bleeding. He also reports having hot and cold chills but denies any fever. Patient denies any known exposure to COVID-19. He currently denies any pain at rest. Patient states that initially came to the hospital for echocardiogram he had that procedure done but then was brought to the emergency room for further evaluation. Review of Systems: Review of Systems: Constitutional: Denies fever; see HPI Eyes: Denies change in visual acuity. [] HENT: Denies nasal congestion or sore throat. [] Respiratory: Denies cough; see HPI Cardiovascular: Denies chest pain or edema. [] GI: Denies abdominal pain, nausea, vomiting, or bloody stools see HPI : Denies dysuria. [] Musculoskeletal: Denies back pain or joint pain. [] Integument: Denies rash. [] Neurologic: Denies headache, focal weakness or sensory changes. [] Endocrine: Denies polyuria or polydipsia. [] Lymphatic: Denies swollen glands. [] Psychiatric: Denies depression or anxiety. [] Heart Score: Risk Factors: Risk Factors: DM, Current or recent (<one month) smoker, HTN, HLP, family history of CAD, obesity. Risk Scores: Score 0 - 3: 2.5% MACE over next 6 weeks - Discharge Home Score 4 - 6: 20.3% MACE over next 6 weeks - Admit for Clinical Observation Score 7 - 10: 72.7% MACE over next 6 weeks - Early Invasive Strategies Allergies: Allergies: Allergies Coded Allergies Type Severity Reaction Last Updated Verified No Known Drug Allergies 08/09/19 No Physical Exam: PE: Constitutional: Well developed, well nourished, no acute distress, non-toxic appearance. [] HENT: Normocephalic, atraumatic, bilateral external ears normal, nose normal. [] Eyes: PERRLA, EOMI, conjunctiva normal, no discharge. [] Neck: Normal range of motion, no stridor. [] Cardiovascular:Heart rate regular rhythm Lungs & Thorax: Respirations even and unlabored, no retractions, no respiratory distress Abdomen: soft, no tenderness Skin: Warm, dry, no erythema, no rash. [] Extremities: No cyanosis, no clubbing, ROM intact, no edema. [] Neurologic: Alert and oriented X 3, no focal deficits noted. [] Psychologic: Affect normal, judgement normal, mood normal. [] EKG: EK-sinus rhythm, rate 73, no STEMI read by Dr. Kaur [] Radiology/Procedures: Radiology/Procedures: PROCEDURE: CHEST AP ONLY EXAM: Chest, single view. HISTORY: Chest pain. COMPARISON: None. FINDINGS: A frontal view of the chest is obtained. There is no infiltrate, pleural effusion or pneumothorax. The heart is normal in size. IMPRESSION: No acute pulmonary finding. PROCEDURE: CT ANGIOGRAPHY CHEST EXAM: CT angiography of the chest with intravenous contrast. HISTORY: Elevated d-dimer. Shortness of air. TECHNIQUE: Computed tomographic images of the chest were obtained following the administration of intravenous contrast according to angiography protocol. Multiplanar reformatting was performed and three dimensional maximum intensity projection images were obtained. *One or more of the following individualized dose reduction techniques were utilized for this examination: 1. Automated exposure control. 2. Adjustment of the mA and/or kV according to patient size. 3. Use of iterative reconstruction technique. COMPARISON: 02/07/2017. FINDINGS: Evaluation for lower lobe pulmonary emboli is significantly limited due to respiratory motion. No convincing embolism is seen. The heart is normal in size. The aorta is normal in caliber. There is aortic and aortic branch vessel atherosclerosis. There is no lymphadenopathy. There is bilateral gynecomastia. There is no pneumothorax or pleural effusion. There are nonspecific areas of groundglass opacity within both lungs, primarily within a peripheral apical distribution. There is superimposed bilateral posterior dependent and basilar atelectasis. There is lingular and right middle lobe pleural parenchymal scarring. There is suspected linear scarring within the posterior left upper lobe. There is suspected hepatomegaly, partially included on the [id number]. There is no suspicious osseous lesion. IMPRESSION: 1. No convincing pulmonary embolism, with significantly limited evaluation of the lower lobe pulmonary arteries due to respiratory motion. 2. Scattered groundglass opacities within both lungs in a predominantly peripheral upper lobe distribution. This may be infectious or inflammatory in etiology. Follow-up can be performed in 6 months to exclude a persistent groundglass nodule. [] Course & Med Decision Making: Course & Med Decision Making Pertinent Labs and Imaging studies reviewed. (See chart for details) 74-year-old male presents to the emergency department with complaints of shortness of breath on exertion CBC is unremarkable; d-dimer is 1.32; CMP reveals a creatinine of 1.4 AST of 61, ALT of 92, otherwise unremarkable; patient's troponin is less than 0.017 CK-MB index is negative; COVID-19 swab is pending. Chest x-ray is unremarkable CT of the chest reveals no PE, however is concerning for scattered groundglass opacities within both lungs with a predominantly peripheral upper lobe distribution. Patient's vital signs are stable throughout his emergency department stay, respirations are nonlabored oxygen saturation 98 to 100% on room air Advised patient of abnormal findings, informed patient that he needs to follow quarantine instructions. Return to the emergency room if symptoms worsen. Patient verbalized an understanding of home care, medications, follow-up, and return to ED instructions and was in agreement with the plan of care. COVID-19 CRITERIA: The patient was evaluated during the global COVID-19 pandemic, and that diagnosis was suspected/considered upon their initial presentation. Their evaluation, treatment and testing was consistent with current guidelines for patients who present with complaints or symptoms that may be related to COVID-19. [] Dragon Disclaimer: Dragon Disclaimer: This electronic medical record was generated, in whole or in part, using a voice recognition dictation system. Departure Departure Impression: Primary Impression: Person under investigation for COVID-19 Additional Impression: Shortness of breath on exertion Disposition: 01 HOME, SELF-CARE Condition: STABLE Referrals: LAURO PENNY MD (PCP) Patient Instructions: Shortness of Breath, [id number] Additional Instructions: You have been tested for or diagnosed with COVID-19. It is an infection caused by a new type of coronavirus. COVID-19 will cause cold-like or mild flu symptoms in most. It can cause more severe symptoms like problems breathing in some. There is no treatment for COVID-19. The body will clear the infection over time. Self-care will help to ease discomfort. Steps to Take: Self-Care Rest as needed. Healthy habits may help you feel better. Steps include: Choose healthy foods including fruits and vegetables. Drink water throughout the day. Get plenty of sleep each night. If you smoke, try to quit. It may ease breathing. Avoid alcohol. Keep Others Healthy The virus can spread to others. Droplets are released every time you sneeze or cough. The droplets can get into the mouth, nose, or eyes of people near you and lead to infection. To lower the chances of spreading COVID-19 to others: Stay at home until your doctor has said it is safe to leave. If you tested positive this will mean staying isolated until both of the following are true: At least 7 days have passed since the start of illness. You are free of fever for at least 72 hours without the use of medicine. During this time: - Avoid public areas, events, or transportation. Do not return to work or school until your doctor has said it is safe to do so. - Call ahead if you need to go to a medical center. Let them know you may have COVID-19. It will help them guide you where to go. They may also ask you to wear a facemask when you come to the office. - If you call for emergency medical services, let them know you may have COVID- 19. While at home: - Try to avoid close contact with others. Stay about 6 feet away. - If possible, spend most of your time in a separate room from others. - Use a face mask if you will be in close contact with others such as sharing a room or vehicle. - Have someone wipe down common surfaces in the home. Use household burglar alarm mechanic every day on areas like doorknobs, counters, or sinks. - Cough or sneeze into a tissue. Throw the tissue away right after use. If a tissue is not available, cough or sneeze into your elbow. - Wash your hands often. Wash them after sneezing or coughing. Use soap and water and wash for at least 20 seconds. Alcohol based hand plate cleaner can be used if soap and water is not available. - Do not prepare food for others. Avoid sharing personal items like forks, spoons, or toothbrushes. - Avoid close contact with pets while you are sick. There is no evidence of the virus passing to pets. This is a safety step until more is known about this virus. Isolation can be frustrating. Social interaction can help. Keep in touch with friends and family through phone and tech options. You can still interact with others in your home, just keep a safe distance of about 6 feet. Follow-up: Your doctors office will check in with you to see if there are any changes in your health. You may be asked to keep track of symptoms to share with them. They will also let you know when you are clear to be in public again. Problems to Look Out For: Contact your doctor if your recovery is not going as you expect. Get emergency care if you have problems such as: - Trouble breathing - Nonstop chest pain or pressure - Changes in awareness, confusion, or problems waking - Lips or face have bluish color - Worsening of symptoms If you think you have an emergency, call for emergency medical services right away. As taken from [facility] Justicifation of Admission Dx: Justifications for Admission: Justification of Admission Dx: N/A COVID-19 Assessment: COVID-19 Patient Risks: Age 65 or older: Yes Sign of co-morbidity: No Exp to person + for COVID: No Travel from affected area: No Lower respiratory symptoms: Yes Fever: No PPE Use: Full PPE with N95 mask or PAPR: Yes (N95) RIANNA BECKETT APRN Mar 06, 2020 10:43
[2020-03-06] MEDS ORDERED: ASPIRIN 325 MG TABLET PO ONE (10:45)
[2020-03-06 10:46] LABS: BASO # 0.1 x10^3/uL (0.0-0.2); BASO % 1 % (0-3); EOS # 0.1 x10^3/uL (0.0-0.7); EOS % 1 % (0-3); HEMATOCRIT 46.8 % (39.0-53.0); HEMOGLOBIN 15.8 g/dL (13.0-17.5); LYMPH # 1.5 x10^3/uL (1.0-4.8); LYMPH % 17 % (24-48); MEAN CORPUSCULAR HEMOGLOBIN 31 pg (25-35); MEAN CORPUSCULAR HGB CONC 34 g/dL (31-37); MEAN CORPUSCULAR VOLUME 92 fL (79-100); MONO # 0.8 x10^3/uL (0.0-1.1); MONO % 9 % (0-9); NEUT # 6.1 x10^3/uL (1.8-7.7); NEUT % 72 % (31-73); PLATELET COUNT 423 x10^3/uL (140-400); RED BLOOD COUNT 5.06 x10^6/uL (4.30-5.70); RED CELL DISTRIBUTION WIDTH 14.7 % (11.5-14.5); WHITE BLOOD COUNT 8.6 x10^3/uL (4.0-11.0)
[2020-03-06 10:55] LABS: PROTHROMBIN TIME PATIENT 14.8 SEC (11.7-14.0)
[2020-03-06 11:00] LABS: CALCIUM 9.1 mg/dL (8.5-10.1); CREATININE 1.4 mg/dL (0.7-1.3); GFR 49.5
[2020-03-06 11:01] LABS: D-DIMER 1.32 ug/mlFEU (0.00-0.50)
[2020-03-06 11:05] LABS: ALBUMIN 3.3 g/dL (3.4-5.0); ALBUMIN/GLOBULIN RATIO 0.7 (1.0-1.7); MAGNESIUM 1.9 mg/dL (1.8-2.4); TOTAL BILIRUBIN 0.9 mg/dL (0.2-1.0); TOTAL PROTEIN 7.8 g/dL (6.4-8.2)
[2020-03-06 11:13] LABS: CREATINE KINASE 74 U/L (39-308)
--- NOTE | 2020-03-06 11:28 | RAD ---
EXAM: Chest, single view. HISTORY: Chest pain. COMPARISON: None. FINDINGS: A frontal view of the chest is obtained. There is no infiltrate, pleural effusion or pneumothorax. The heart is normal in size. IMPRESSION: No acute pulmonary finding. Electronically signed by: Carleen Young MD (03/06/2020 11:25 AM) [id number]
--- NOTE | 2020-03-06 11:52 | EKG ---
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
[2020-03-06] MEDS ORDERED: CONTRAST GIVEN. MC PRN (12:15)
[2020-03-06] MEDS ORDERED: IOHEXOL 350 MG/ML 100 ML VIAL. IV ONE (12:15)
--- NOTE | 2020-03-06 12:43 | RAD ---
EXAM: CT angiography of the chest with intravenous contrast. HISTORY: Elevated d-dimer. Shortness of air. TECHNIQUE: Computed tomographic images of the chest were obtained following the administration of intravenous contrast according to angiography protocol. Multiplanar reformatting was performed and three dimensional maximum intensity projection images were obtained. *One or more of the following individualized dose reduction techniques were utilized for this examination: 1. Automated exposure control. 2. Adjustment of the mA and/or kV according to patient size. 3. Use of iterative reconstruction technique. COMPARISON: 02/07/2017. FINDINGS: Evaluation for lower lobe pulmonary emboli is significantly limited due to respiratory motion. No convincing embolism is seen. The heart is normal in size. The aorta is normal in caliber. There is aortic and aortic branch vessel atherosclerosis. There is no lymphadenopathy. There is bilateral gynecomastia. There is no pneumothorax or pleural effusion. There are nonspecific areas of groundglass opacity within both lungs, primarily within a peripheral apical distribution. There is superimposed bilateral posterior dependent and basilar atelectasis. There is lingular and right middle lobe pleural parenchymal scarring. There is suspected linear scarring within the posterior left upper lobe. There is suspected hepatomegaly, partially included on the [id number]-jj-btvx. There is no suspicious osseous lesion. IMPRESSION: 1. No convincing pulmonary embolism, with significantly limited evaluation of the lower lobe pulmonary arteries due to respiratory motion. 2. Scattered groundglass opacities within both lungs in a predominantly peripheral upper lobe distribution. This may be infectious or inflammatory in etiology. Follow-up can be performed in 6 months to exclude a persistent groundglass nodule. Electronically signed by: Carleen Young MD (03/06/2020 12:40 PM) [id number]
[2020-03-06] MEDS ORDERED: IV NORMAL SALINE 1000ML BAG 1,000 ML IV ONE (13:45)
[2020-03-06 15:45] VITALS: BP 158/81
--- NOTE | 2020-03-07 18:16 | NUR ---
IP: Attempted to call pt to give tests results. Left message.
== END 2020-03-06 15:50 | disposition home or self-care (01) ==
LOC: ER 10:14
DX: U07.1 COVID-19 (principal); R06.02 Shortness of breath; R19.7 Diarrhea, unspecified; I11.0 Hypertensive heart disease with heart failure; I50.9 Heart failure, unspecified; E78.00 Pure hypercholesterolemia, unspecified; E03.9 Hypothyroidism, unspecified; M10.9 Gout, unspecified; Z87.891 Personal history of nicotine dependence
CPT/HCPCS: 36415; 71045; 71275; 80053; 82553; 83690; 83735; 83880; 84484; 85025; 85379; 85610; 85730; 93005; 96360; 99285; C9803; J7030; Q9967; U0003

== ENCOUNTER → 2020-03-06 | Outpatient (CLI) | payer BC ==
[2019-08-09 13:25] VITALS: BP 146/86
--- NOTE | 2020-03-06 11:51 | CARD ---
MR#: [id number] Date of Study: 03/06/2020 Ordering Physician: ADRIEL LOWERY, Referring Physician: ADRIEL LOWERY, Tech: Shirley Bowers [facility] APPROVED REPORT EXAM: Two-dimensional and M-mode echocardiogram with Doppler and color Doppler. Other Information Quality : Good INDICATION Dyspnea 2D DIMENSIONS RVDd2.8 (2.9-3.5cm)Left Atrium(2D)3.3 (1.6-4.0cm) IVSd1.3 (0.7-1.1cm)Aortic Root(2D)3.4 (2.0-3.7cm) LVDd4.0 (3.9-5.9cm)LVOT Diameter2.1 (1.8-2.4cm) PWd1.3 (0.7-1.1cm)LVDs3.1 (2.5-4.0cm) FS (%) 22.0 %SV32.2 ml Aortic Valve AoV Peak Caleb.112.2cm/sAoV VTI22.6cm AO Peak GR.5.0mmHgLVOT Peak Caleb.78.7cm/s AO Mean GR.3mmHgAVA (VMAX)2.38cm2 RAJ (VTI)2.80cm2 Mitral Valve MV E Gshfemzb71.8cm/sMV DECEL ZKBQ552cl MV A Uumtblhh68.1cm/sE/A Ratio0.8 Pulmonary Vein S1 Ljdzaoem74.8cm/sD2 Tjkrvtns91.4cm/s LEFT VENTRICLE The left ventricle is normal size. There is normal left ventricular wall thickness. The left ventricu lar ejection fraction is within normal range. The Ejection Fraction is estimated at 50%. There is sli ght hypokinesis in the mid anteroseptal kendrick. Transmitral Doppler flow pattern is Grade I-abnormal r elaxation pattern. RIGHT VENTRICLE The right ventricle is normal size. The right ventricular systolic function is normal. ATRIA The left atrium size is normal. The right atrium size is normal. The interatrial septum is intact wit h no evidence for an atrial septal defect or patent foramen ovale as noted on 2-D or Doppler imaging. AORTIC VALVE The aortic valve is calcified but opens well. Doppler and Color Flow revealed no significant aortic r egurgitation. There is no significant aortic valvular stenosis. MITRAL VALVE The mitral valve is calcified but opens well. There is no evidence of mitral valve prolapse. There is no mitral valve stenosis. Doppler and Color-flow revealed trace mitral regurgitation. TRICUSPID VALVE The tricuspid valve is normal in structure and function. Doppler and Color Flow revealed no tricuspid valve regurgitation noted. There is no tricuspid valve stenosis. PULMONIC VALVE The pulmonic valve is not well visualized. Doppler and Color Flow revealed trace pulmonic valvular re gurgitation. There is no pulmonic valvular stenosis. GREAT VESSELS The aortic root is normal in size. The ascending aorta is not well seen. The IVC is normal in size an d collapses >50% with inspiration. PERICARDIAL EFFUSION There is no evidence of significant pericardial effusion. Critical Notification Critical Value: No <Conclusion> The left ventricle is normal size. The left ventricular ejection fraction is within normal range. The Ejection Fraction is estimated at 50%. There is slight hypokinesis in the mid anteroseptal kendrick. Doppler and Color Flow revealed no significant aortic regurgitation. There is no significant aortic valvular stenosis. Doppler and Color-flow revealed trace mitral regurgitation. Doppler and Color Flow revealed no tricuspid valve regurgitation noted. Signed by : Tyrone Rushing MD Electronically Approved : 03/06/2020 11:51:26
== END | disposition home or self-care (01) ==
LOC: ECHO 07:50
PROVIDERS: ATTEND Internal Medicine Cardiovascular Disease
DX: I08.0 Rheumatic disorders of both mitral and aortic valves (principal)
CPT/HCPCS: 93306

== ENCOUNTER 2020-04-08 01:24 | Emergency (ER) | payer BC ==
[~2020-04-08] VITALS: Ht 182.9 cm; Wt 113.6 kg
[2020-04-08 02:25] LABS: BILIRUBIN,URINE NEGATIVE (NEG); CLARITY,URINE CLEAR; COLOR,URINE YELLOW; NITRITE,URINE NEGATIVE (NEG); PH,URINE 5.5 (<5.0-8.0); PROTEIN,URINE NEGATIVE (NEG-TRACE); UROBILINOGEN,URINE 0.2 mg/dL (0.2 mg/dL)
[2020-04-08 02:36] LABS: SQUAMOUS EPITHELIAL CELL,UR FEW /LPF
[2020-04-08 02:37] LABS: BACTERIA,URINE FEW /HPF (0-FEW)
[2020-04-08] MEDS ORDERED: CEPH-264 PO (03:25)
[2020-04-08] MEDS ORDERED: PHEN100T82 PO (03:25)
--- NOTE | 2020-04-08 03:25 | PHYS DOC ---
Past Medical History Past Medical History: CHF, High Cholesterol, Hypertension, Hypothyroid Additional Past Medical Histor: Gout, Past Surgical History: Other Additional Past Surgical Histo: L4 LAMINECTOMY, PILONIDAL CYST, BILATERAL ARM SX, BILATERAL WRIST SX Smoking Status: Former Smoker Alcohol Use: None Drug Use: None General Adult EDM: Chief Complaint: PAIN ON URINATION HPI: HPI: Patient is a 74-year-old male who presents to the emergency room complaining of dysuria. He states it started yesterday and has gotten much worse today. He had this several months ago and it feels exactly the same. He also had it a couple weeks ago but it resolved on its own. He denies any nausea, vomiting, difficulty urinating, fever, chills, sweats. Review of Systems: Review of Systems: Negative other than noted Heart Score: Risk Factors: Risk Factors: DM, Current or recent (<one month) smoker, HTN, HLP, family history of CAD, obesity. Risk Scores: Score 0 - 3: 2.5% MACE over next 6 weeks - Discharge Home Score 4 - 6: 20.3% MACE over next 6 weeks - Admit for Clinical Observation Score 7 - 10: 72.7% MACE over next 6 weeks - Early Invasive Strategies Allergies: Allergies: Allergies Coded Allergies Type Severity Reaction Last Updated Verified No Known Drug Allergies 08/09/19 No Physical Exam: PE: General: Awake, alert, NAD. Well Nourished, well hydrated. Cooperative HEENT: Atraumatic, EOMI, PERRL, airway patent, moist oral mucosa Neck: Supple, trachea midline Respiratory: CTA bilaterally, normal effort, no wheezing/crackles CV: RRR, no murmur, cap refill <2 GI: Soft, nondistended, nontender, no masses MSK: No obvious deformities Skin: Warm, dry, intact Neuro: A&O x3, speech NL, sensory and motor grossly intact, no focal deficits Psych: Normal affect, normal mood, not suicidal or homicidal Current Patient Data: Labs: Laboratory Tests Test 04/08/20 02:17 Urine Collection Type Unknown Urine Color Yellow Urine Clarity Clear Urine pH 5.5 (<5.0-8.0) Urine Specific [place] 1.010 (1.000-1.030) Urine Protein Negative mg/dL (NEG-TRACE) Urine Glucose (UA) Negative mg/dL (NEG) Urine Ketones (Stick) Negative mg/dL (NEG) Urine Blood Moderate (NEG) Urine Nitrite Negative (NEG) Urine Bilirubin Negative (NEG) Urine Urobilinogen Dipstick 0.2 mg/dL (0.2 mg/dL) Urine Leukocyte Esterase Small (NEG) Urine RBC 11-20 /HPF (0-2) Urine WBC 11-20 /HPF (0-4) Urine Squamous Epithelial Cells Few /LPF Urine Bacteria Few /HPF (0-FEW) Urine Mucus Slight /LPF Vital Signs: Vital Signs Date Time Temp Pulse Resp B/P (MAP) Pulse Ox O2 Delivery O2 Flow Rate FiO2 04/08/20 01:24 97.9 86 18 165/101 (122) 97 Room Air 97.9 EKG: EKG: [] Radiology/Procedures: Radiology/Procedures: [] Course & Med Decision Making: Course & Med Decision Making Pertinent Labs and Imaging studies reviewed. (See chart for details) Patient is 74-year-old male who presents to the emergency room complaining of dysuria. UA shows UTI. Patient does not have any systemic symptoms. He does not need any lab work at this time. There is no signs of sepsis. He will follow-up with his primary care physician. Patient's test results and vitals while in the ED were fully reviewed and discussed with the patient. Patient is stable and at this time does not need admission to the hospital. We have discussed strict return precautions and the importance of following up with their Primary Care Physician. Patient stated understanding and was given an o pportunity to ask any questions. Patient is in agreement with plan. [place] Disclaimer: Corine Disclaimer: This electronic medical record was generated, in whole or in part, using a voice recognition dictation system. Departure Departure Impression: Primary Impression: UTI (urinary tract infection) Disposition: HOME, SELF-CARE Condition: STABLE Referrals: LAURO PENNY MD (PCP) Patient Instructions: Urinary Tract Infection Scripts Phenazopyridine Hcl (PYRIDIUM) 100 Mg Tablet 100 MG PO TID for dysuria, #10 TAB Prov: RUBI FLOWER MD 04/08/20 Cephalexin (KEFLEX) 500 Mg Capsule 1 CAP PO BID for 14 Days, #28 CAP 0 Refills Prov: RUBI FLOWER MD 04/08/20 Justicifation of Admission Dx: Justifications for Admission: Justification of Admission Dx: No RUBI FLOWER MD Apr 08, 2020 03:25
[2020-04-08] MEDS ORDERED: cefTRIAXone IM 1 GM VIAL IM ONE (03:30)
[2020-04-08 04:03] VITALS: BP 185/101
== END 2020-04-08 04:14 | disposition home or self-care (01) ==
LOC: ER 01:24
DX: N39.0 Urinary tract infection, site not specified (principal); R30.0 Dysuria; I11.9 Hypertensive heart disease without heart failure; I50.9 Heart failure, unspecified; E03.9 Hypothyroidism, unspecified; E78.00 Pure hypercholesterolemia, unspecified; Z98.890 Other specified postprocedural states; Z87.891 Personal history of nicotine dependence; Z90.89 Acquired absence of other organs
CPT/HCPCS: 81001; 96372; 99285; J0696